=== PATIENT | female | born 1960 | race Two or more races ===

== ENCOUNTER 2016-09-13 07:40 | Emergency (ER) | payer MEDICAID ==
[~2016-09-13] VITALS: Ht 157.5 cm; Wt 65.8 kg
[~2016-09-13 07:40] MED LIST: AMLO5TAB2 PO; PRE5T GT; TRAM50TA2 PO
[2016-09-13 07:56] VITALS: BP 137/89
== END 2016-09-13 08:22 | disposition home or self-care (01) ==
LOC: ER 07:43
DX: M17.0 Bilateral primary osteoarthritis of knee (principal); M79.7 Fibromyalgia; K51.90 Ulcerative colitis, unspecified, without complications; F17.210 Nicotine dependence, cigarettes, uncomplicated; I10 Essential (primary) hypertension; J45.909 Unspecified asthma, uncomplicated

== ENCOUNTER 2017-11-06 07:43 | Emergency (ER) | payer MEDICAID ==
[~2017-11-06] VITALS: Ht 157.5 cm; Wt 65.8 kg
[2017-11-06 08:29] VITALS: BP 131/83
[2017-11-06] MEDS ORDERED: KETOROLAC TROMETH 60MG/2ML VIAL IM ONE (08:45)
== END 2017-11-06 09:27 | disposition home or self-care (01) ==
LOC: ER 07:43
DX: S96.912A Strain of unspecified muscle and tendon at ankle and foot level, left foot, initial encounter (principal); D86.9 Sarcoidosis, unspecified; F17.210 Nicotine dependence, cigarettes, uncomplicated; I10 Essential (primary) hypertension; J45.909 Unspecified asthma, uncomplicated; X58.XXXA Exposure to other specified factors, initial encounter; Y93.89 Activity, other specified; Y92.89 Other specified places as the place of occurrence of the external cause; Y99.8 Other external cause status
CPT/HCPCS: 96372; 99283; J1885

== ENCOUNTER 2018-07-08 07:46 | Emergency (ER) | payer MEDICAID ==
[~2018-07-08] VITALS: Ht 157.5 cm; Wt 70.3 kg
[~2018-07-08 07:46] MED LIST changes: +AMLO5TAB13 PO; -AMLO5TAB2 PO; +NAP500T PO; -PRE5T GT; +PRE5T PO; +RANI300T3 PO
[2018-07-08 07:55] VITALS: BP 124/81
== END 2018-07-08 10:21 | disposition home or self-care (01) ==
LOC: ER 07:46
DX: J02.9 Acute pharyngitis, unspecified (principal); J40 Bronchitis, not specified as acute or chronic; I10 Essential (primary) hypertension; Z98.51 Tubal ligation status
CPT/HCPCS: 71046

== ENCOUNTER 2018-08-01 09:23 | Emergency (ER) | payer MEDICAID ==
[~2018-08-01] VITALS: Ht 157.5 cm; Wt 72.6 kg
[2018-08-01 10:08] VITALS: BP 150/78
[2018-08-01] MEDS ORDERED: traMADol HCL 50 MG TAB PO ONE (10:45)
== END 2018-08-01 10:55 | disposition home or self-care (01) ==
LOC: ER 09:23
DX: S52.571A Other intraarticular fracture of lower end of right radius, initial encounter for closed fracture (principal); M19.90 Unspecified osteoarthritis, unspecified site; J45.909 Unspecified asthma, uncomplicated; I10 Essential (primary) hypertension; Z79.899 Other long term (current) drug therapy; Z98.51 Tubal ligation status; W01.198A Fall on same level from slipping, tripping and stumbling with subsequent striking against other object, initial encounter; Y93.01 Activity, walking, marching and hiking; Y99.8 Other external cause status; Y92.89 Other specified places as the place of occurrence of the external cause
CPT/HCPCS: 29125; 73110

== ENCOUNTER 2019-01-10 07:11 | Emergency (ER) | payer MEDICAID ==
[~2019-01-10] VITALS: Ht 157.5 cm; Wt 72.6 kg
[~2019-01-10 07:11] MED LIST changes: -AMLO5TAB13 PO; +AMLO5TAB15 PO
[2019-01-10 07:29] VITALS: BP 134/93
== END 2019-01-10 08:12 | disposition home or self-care (01) ==
LOC: ER 07:16
DX: L03.115 Cellulitis of right lower limb (principal); M19.90 Unspecified osteoarthritis, unspecified site; J45.909 Unspecified asthma, uncomplicated; I10 Essential (primary) hypertension
CPT/HCPCS: 73590; 73610

== ENCOUNTER → 2019-08-10 | Emergency (ER) | payer MEDICAID ==
[~2019-08-10] VITALS: Ht 157.5 cm; Wt 73.5 kg
[~2019-08-10] MED LIST changes: +ACETAMINOPHEN 500 MG TAB PO ONE; +cloNIDine HCL 0.1 MG TAB PO ONE
[2019-08-10 04:27] LABS: Basophils # (auto) 0.1 10 ^3/uL (0-0.2); Basophils % (auto) 0.9 % (0.0-2.0); Eosinophils # (auto) 0 10 ^3/uL (0-0.8); Eosinophils % (auto) 0.3 % (0.0-7.0); Hematocrit 41.2 % (36.0-46.0); Hemoglobin 14.4 g/dL (12.2-16.2); Lymphocytes # (auto) 0.8 10 ^3/uL (0.4-5.4); Lymphocytes % (auto) 5.6 % (10.0-50.0); Mean Corpuscular Hemoglobin 32.7 pg (28.0-32.0); Mean Corpuscular Hgb Conc. 34.9 g/dL (32.0-36.0); Mean Corpuscular Volume 93.7 fL (80.0-100.0); Monocytes # (auto) 0.5 10 ^3/uL (0-1.3); Monocytes % (auto) 3.1 % (0.0-12.0); Neutrophils # (auto) 12.9 10 ^3/uL (1.6-8.6); Neutrophils % (auto) 90.1 % (37.0-80.0); Platelet Count (auto) 296 10^3/uL (140-450); Red Cell Distribution Width 13.4 % (11.8-14.3); White Blood Cell 14.4 10^3/uL (4.4-10.8)
[2019-08-10 04:46] LABS: INR 0.99 (0.9-1.15); Partial Thromboplastin Time 25.9 sec (23.64-32.05)
[2019-08-10 04:48] LABS: Albumin 3.6 g/dL (3.4-5.0); Anion Gap 7 (5-15); Blood Urea Nitrogen 18 mg/dL (7-18); Calcium 8.8 mg/dL (8.5-10.1); Carbon Dioxide 24 mmol/L (21-32); Chloride 110 mmol/L (98-107); Glucose 143 mg/dL (74-106); Potassium 3.6 mmol/L (3.5-5.1); Sodium 141 mmol/L (136-145)
[2019-08-10 04:53] LABS: Alanine Aminotransferase 21 U/L (13-56); Alkaline Phosphatase 105 U/L (45-117); Aspartate Aminotransferase 15 U/L (15-37); BUN/Creatinine Ratio 28.6; Bilirubin, Total 0.5 mg/dL (0.2-1.0); GFR African American 124 mL/min; GFR Non-African American 103 mL/min
[2019-08-10 06:07] LABS: Urine Bacteria FEW /hpf (None Seen); Urine Blood Negative /uL (Negative); Urine Mucus FEW (None Seen); Urine Specific Gravity 1.005 (1.001-1.035); Urine WBC 1 /hpf (0 - 5)
[2019-08-10 08:27] VITALS: BP 117/80
== END | disposition home or self-care (01) ==
LOC: ER 01:31
DX: I10 Essential (primary) hypertension (principal); R73.9 Hyperglycemia, unspecified; D86.9 Sarcoidosis, unspecified; M19.90 Unspecified osteoarthritis, unspecified site; J45.909 Unspecified asthma, uncomplicated; Z98.51 Tubal ligation status; Z90.89 Acquired absence of other organs
CPT/HCPCS: 36415; 71046; 80053; 81001; 83880; 84484; 85025; 85610; 85730; 93005

== ENCOUNTER 2019-11-07 13:38 | Emergency (ER) | payer MEDICAID ==
[~2019-11-07] VITALS: Ht 157.5 cm; Wt 74.4 kg
[~2019-11-07 13:38] MED LIST changes: -ACETAMINOPHEN 500 MG TAB PO ONE; -cloNIDine HCL 0.1 MG TAB PO ONE
[2019-11-07 13:51] VITALS: BP 153/95
[2019-11-07] MEDS ORDERED: HYDROcodone-ACET 7.5/325MG TAB PO ONE (14:15)
== END 2019-11-07 14:48 | disposition home or self-care (01) ==
LOC: ER 13:38
DX: S52.592A Other fractures of lower end of left radius, initial encounter for closed fracture (principal); I10 Essential (primary) hypertension; Z79.899 Other long term (current) drug therapy; Z88.2 Allergy status to sulfonamides; W01.0XXA Fall on same level from slipping, tripping and stumbling without subsequent striking against object, initial encounter; Y93.89 Activity, other specified; Y92.89 Other specified places as the place of occurrence of the external cause; Y99.8 Other external cause status
CPT/HCPCS: 29125; 73110

== ENCOUNTER 2020-02-20 13:49 | Inpatient (IN) | payer MEDICAID ==
[~2020-02-20] VITALS: Ht 158.8 cm; Wt 75.1 kg
[2020-02-20] MEDS ORDERED: MORPHINE SULFATE 4 MG/ML SYR/VIAL IV ONE (14:15)
[2020-02-20] MEDS ORDERED: ONDANSETRON HCL 4 MG/2 ML VIAL IV ONE (14:15)
[2020-02-20 14:51] LABS: Basophils # (auto) 0.7 10 ^3/uL (0-0.2); Basophils % (auto) 7.4 % (0.0-2.0); Eosinophils # (auto) 0.1 10 ^3/uL (0-0.8); Eosinophils % (auto) 1.2 % (0.0-7.0); Hematocrit 41.6 % (36.0-46.0); Lymphocytes # (auto) 1.9 10 ^3/uL (0.4-5.4); Lymphocytes % (auto) 18.7 % (10.0-50.0); Mean Corpuscular Hemoglobin 31.5 pg (28.0-32.0); Mean Corpuscular Hgb Conc. 33.6 g/dL (32.0-36.0); Mean Corpuscular Volume 93.7 fL (80.0-100.0); Monocytes # (auto) 0.8 10 ^3/uL (0-1.3); Monocytes % (auto) 8.4 % (0.0-12.0); Neutrophils # (auto) 6.4 10 ^3/uL (1.6-8.6); Neutrophils % (auto) 64.3 % (37.0-80.0); Nucleated Red Blood Cells % 0.1 %; Platelet Count (auto) 324 10^3/uL (140-450); Red Blood Cells 4.44 10^6/uL (4.0-5.20); Red Cell Distribution Width 13.4 % (11.8-14.3)
[2020-02-20 15:11] LABS: Calcium 8.5 mg/dL (8.5-10.1); Chloride 112 mmol/L (98-107); Sodium 144 mmol/L (136-145)
[2020-02-20 15:15] LABS: Alanine Aminotransferase 20 U/L (13-56); Albumin 3.6 g/dL (3.4-5.0); Anion Gap 7 (5-15); Aspartate Aminotransferase 11 U/L (15-37); BUN/Creatinine Ratio 20.8; Blood Urea Nitrogen 11 mg/dL (7-18); Carbon Dioxide 25 mmol/L (21-32); GFR African American 152 mL/min; GFR Non-African American 125 mL/min; Glucose 107 mg/dL (74-106)
[2020-02-20 15:19] LABS: Alkaline Phosphatase 125 U/L (45-117); Bilirubin, Total 0.5 mg/dL (0.2-1.0); Total Protein 6.6 g/dL (6.4-8.2)
[2020-02-20 15:22] LABS: Potassium 2.7 mmol/L (3.5-5.1)
[2020-02-20] MEDS ORDERED: POTASSIUM CHL 20MEQ/100ML 100 ML IV ONE (15:30)
[2020-02-20] MEDS ORDERED: LORazepam 0.5 MG TAB PO PRN (16:00)
[2020-02-20] MEDS ORDERED: MORPHINE SULF INJ 2 MG/ML SYRINGE 1ML IV PRN ×2 (16:00)
[2020-02-20] MEDS ORDERED: LABETALOL HCL 5 MG/ML 4ML SYRINGE IV PRN (16:00)
[2020-02-20] MEDS ORDERED: NITROGLYCERIN 0.4 MG SL TAB SL PRN (16:00)
[2020-02-20] MEDS: SODIUM CHLORIDE 0.9% 1,000 ML IV SCH (16:25)
[2020-02-20 16:57] LABS: Urine Bacteria NONE SEEN /hpf (None Seen); Urine Blood Negative /uL (Negative); Urine Specific Gravity 1.003 (1.001-1.035); Urine WBC 6 /hpf (0 - 5)
[2020-02-20] MEDS ORDERED: POTASSIUM CHL 20 Meq TABLET PO ONE ×2 (17:15→22:45)
--- NOTE | 2020-02-20 17:30 | NUR ---
Telemetry admit from ER MANOLO MORAES admitted to Telemetry unit after SBAR received. Patient oriented to TIN DEVLIN RN primary RN, unit, room, bed, and unit policies regarding patient care. Patient now on continuous telemetry monitoring, tele box #25 and telemetry reading on arrival to unit is sinus rhythm. [facility] and encouraged to call if they need something. All questions and concerns addressed, patient verbalized understanding.
[2020-02-20 17:32] VITALS: BP 135/88
[2020-02-20 17:49] VITALS: BP 135/88
[2020-02-20] MEDS ORDERED: FAMOTIDINE 20 MG TAB PO SCH (18:00)
--- NOTE | 2020-02-20 18:52 | NUR ---
Closing Shift Note Patient resting in bed. No distress noted. Will give report and endorse care to the stitch bonding machine tender helper RN.
[2020-02-20 19:14] LABS: Magnesium 2.2 mg/dL (1.6-2.6); Potassium 3.4 mmol/L (3.5-5.1)
--- NOTE | 2020-02-20 20:00 | NUR ---
Opening Shift Note Assumed care of patient, awake and alert. No S/S of distress/SOB or pain. Instructed on POC and to call for assist PRN, will continue to monitor for changes Q1hr and PRN.Advised no food or drink after midnight for stress test and echo. tomorrow.
--- NOTE | 2020-02-20 20:54 | NUR ---
Patient said they tested her for covid-19, 2 months ago before surgery in [facility] with negative result.
[2020-02-20 21:33] VITALS: BP 105/70
[2020-02-20] MEDS: ACETAMINOPHEN 325 MG TAB PO PRN (21:37)
--- NOTE | 2020-02-20 22:42 | NUR ---
Informed Sammy Carranza, for patients potassium result of 3.4, with order of 20meq. potassium p.o x one.
[2020-02-21 04:54] VITALS: BP 111/75
--- NOTE | 2020-02-21 05:00 | NUR ---
IV insertion IV access obtained, via clean sterile technique by inserting 22 gauge catheter at right hand after attempt. IV secured properly. No trauma to site. Patient tolerated well.
[2020-02-21] MEDS: SODIUM CHLORIDE 0.9% 1,000 ML IV SCH ×2 (05:26→18:32)
[2020-02-21 06:30] LABS: Basophils # (auto) 0.1 10 ^3/uL (0-0.2); Basophils % (auto) 1.3 % (0.0-2.0); Eosinophils # (auto) 0.1 10 ^3/uL (0-0.8); Eosinophils % (auto) 2.4 % (0.0-7.0); Hematocrit 40.5 % (36.0-46.0); Hemoglobin 13.7 g/dL (12.2-16.2); Lymphocytes % (auto) 35.6 % (10.0-50.0); Mean Corpuscular Volume 94.1 fL (80.0-100.0); Monocytes # (auto) 0.6 10 ^3/uL (0-1.3); Monocytes % (auto) 10.1 % (0.0-12.0); Neutrophils # (auto) 2.9 10 ^3/uL (1.6-8.6); Neutrophils % (auto) 50.6 % (37.0-80.0); Nucleated Red Blood Cells % 0.1 %; Platelet Count (auto) 312 10^3/uL (140-450); Red Cell Distribution Width 13.6 % (11.8-14.3); White Blood Cell 5.7 10^3/uL (4.4-10.8)
[2020-02-21 06:44] LABS: Magnesium 2.3 mg/dL (1.6-2.6); Potassium 3.8 mmol/L (3.5-5.1)
[2020-02-21 06:47] LABS: INR 1.03 (0.9-1.15); Partial Thromboplastin Time 25.6 sec (23.0-31.2)
[2020-02-21 06:51] LABS: Albumin 3.3 g/dL (3.4-5.0); BUN/Creatinine Ratio 15.2; Bilirubin, Total 0.8 mg/dL (0.2-1.0); Calcium 8.2 mg/dL (8.5-10.1); Phosphorus 3.2 mg/dL (2.5-4.90); Total Protein 6.1 g/dL (6.4-8.2)
--- NOTE | 2020-02-21 07:30 | NUR ---
Received report from Antonella Montana. Pt. is sleeping comfortably in bed. IV fluids are running, no distress noted.
--- NOTE | 2020-02-21 07:32 | NUR ---
Report given to Chris Sanchez, patient is resting no distress.
[2020-02-21] MEDS ORDERED: ADENOSINE 62 MG in GIVE UN-DILUTED 0 ML IV STA (08:23)
[2020-02-21 09:00] VITALS: BP 123/81
--- NOTE | 2020-02-21 09:51 | NUR ---
Pt. off unit. Addendum: 02/21/20 at 0952 by PAWAN FLORES RN RN Amended: Links added.
[2020-02-21] MEDS ORDERED: amLODIPine BESYLATE 5 MG TAB PO SCH (10:00)
[2020-02-21] MEDS: DOCUSATE CALCIUM 240 MG CAP PO SCH (10:00)
[2020-02-21] MEDS: FAMOTIDINE 20 MG TAB PO SCH (11:32)
[2020-02-21] MEDS: predniSONE 5 MG TAB PO SCH (11:32)
[2020-02-21] MEDS: ENOXAPARIN SOD 40 MG/0.4 ML SYRINGE SC SCH (11:32)
[2020-02-21 13:00] VITALS: BP 133/94
[2020-02-21] MEDS: METOPROLOL TARTRATE 25 MG TAB PO SCH ×2 (13:09→21:00)
[2020-02-21 17:00] VITALS: BP 125/78
--- NOTE | 2020-02-21 19:21 | NUR ---
Pt. is resting comfortably in bed. Her blood pressure continues to be stable and she states feeling better. Report given to Antonella RUIZ.
--- NOTE | 2020-02-21 19:57 | NUR ---
Opening Shift Note Assumed care of patient, awake and alert. No S/S of distress/SOB or pain. Instructed on POC and to call for assist PRN, will continue to monitor for changes Q1hr and PRN.Patient said she will go home tomorrow.
[2020-02-21 21:12] VITALS: BP 119/75
[2020-02-22 04:39] VITALS: BP 109/71
[2020-02-22 06:07] LABS: Basophils # (auto) 0.1 10 ^3/uL (0-0.2); Basophils % (auto) 1.4 % (0.0-2.0); Eosinophils # (auto) 0.1 10 ^3/uL (0-0.8); Eosinophils % (auto) 2.2 % (0.0-7.0); Hematocrit 43.7 % (36.0-46.0); Hemoglobin 14.5 g/dL (12.2-16.2); Lymphocytes # (auto) 1.7 10 ^3/uL (0.4-5.4); Lymphocytes % (auto) 25.2 % (10.0-50.0); Mean Corpuscular Hemoglobin 31.8 pg (28.0-32.0); Mean Corpuscular Hgb Conc. 33.1 g/dL (32.0-36.0); Monocytes # (auto) 0.5 10 ^3/uL (0-1.3); Monocytes % (auto) 7.6 % (0.0-12.0); Neutrophils # (auto) 4.3 10 ^3/uL (1.6-8.6); Neutrophils % (auto) 63.6 % (37.0-80.0); Platelet Count (auto) 315 10^3/uL (140-450); Red Blood Cells 4.55 10^6/uL (4.0-5.20); Red Cell Distribution Width 13.8 % (11.8-14.3); White Blood Cell 6.8 10^3/uL (4.4-10.8)
[2020-02-22 06:30] LABS: Anion Gap 5 (5-15); Blood Urea Nitrogen 14 mg/dL (7-18); Calcium 8.9 mg/dL (8.5-10.1); Carbon Dioxide 27 mmol/L (21-32); Chloride 109 mmol/L (98-107); Glucose 89 mg/dL (74-106); Potassium 3.4 mmol/L (3.5-5.1); Sodium 141 mmol/L (136-145)
[2020-02-22 06:36] LABS: GFR African American 162 mL/min; GFR Non-African American 134 mL/min
--- NOTE | 2020-02-22 07:10 | NUR ---
Report given to Chris Hurd, patient is resting no distress.
--- NOTE | 2020-02-22 07:30 | NUR ---
Opening Shift Note Assuming care of patient at this time. Patient is awake and alert. Patient is complaining of pain to the legs secondary to fibromyalgia. Patient shows no signs or symptoms of distress or shortness of breath. Bed is locked and lowered with side rails up x2. Instructed patient on the plan of care for today and to call for assistance as needed. Call light within reach. Will continue to round hourly and as needed.
[2020-02-22 09:00] VITALS: BP 126/88
[2020-02-22] MEDS: SODIUM CHLORIDE 0.9% 1,000 ML IV SCH (09:08)
[2020-02-22] MEDS: DOCUSATE CALCIUM 240 MG CAP PO SCH (09:14)
[2020-02-22] MEDS: predniSONE 5 MG TAB PO SCH (09:14)
[2020-02-22] MEDS: ACETAMINOPHEN 325 MG TAB PO PRN (09:14)
[2020-02-22] MEDS: FAMOTIDINE 20 MG TAB PO SCH (09:14)
[2020-02-22] MEDS: ENOXAPARIN SOD 40 MG/0.4 ML SYRINGE SC SCH (09:15)
[2020-02-22] MEDS: METOPROLOL TARTRATE 25 MG TAB PO SCH (09:18)
[2020-02-22] MEDS ORDERED: METOPROLOL SUCCINATE XL 50 MG TAB PO SCH (10:00)
[2020-02-22] MEDS ORDERED: METOPROLOL TARTRATE 25 MG TAB PO SCH (10:00)
[2020-02-22] MEDS ORDERED: POTASSIUM EFFERVESENT TAB 25 MEQ PO ONE (11:45)
[2020-02-22 12:51] VITALS: BP 128/92
[2020-02-22 13:00] VITALS: BP 128/92
--- NOTE | 2020-02-22 14:28 | NUR ---
Discharge Discharge instructions given as ordered. Encourage to follow up with PMD as instructed. All questions and concerns addressed. Patient verbalized understanding. Medication reconciliation form completed and copy given to patient. IV removed with catheter intact, pressure dressing applied. Telemetry unit returned to ICU. Patient taken to vehicle via wheelchair with all personal belongings, accompanied by staff. No distress noted at time of departure.
== END 2020-02-22 14:30 | disposition home or self-care (01) | DRG 201 ==
LOC: EDBD 13:49 → ER 13:49 → TELE 13:50 → TELE-CENTR 17:50
PROVIDERS: ATTEND Internal Medicine
DX: I47.1 Supraventricular tachycardia (principal); E87.6 Hypokalemia; K21.9 Gastro-esophageal reflux disease without esophagitis; D86.9 Sarcoidosis, unspecified; I24.9 Acute ischemic heart disease, unspecified; M19.90 Unspecified osteoarthritis, unspecified site; I05.8 Other rheumatic mitral valve diseases; I10 Essential (primary) hypertension; J45.909 Unspecified asthma, uncomplicated; M35.00 Sjogren syndrome, unspecified; M79.7 Fibromyalgia; E66.9 Obesity, unspecified; M81.0 Age-related osteoporosis without current pathological fracture; Z82.5 Family history of asthma and other chronic lower respiratory diseases; Z88.2 Allergy status to sulfonamides; Z68.29 Body mass index [BMI] 29.0-29.9, adult
CPT/HCPCS: 36415; 71045; 78452; 80048; 80053; 80061; 81001; 83735; 83880; 84100; 84132; 84436; 84443; 84484; 85025; 85379; 85610; 85730; 93005; 93017; 93306; G0378; J0153; J2405; J3480

== ENCOUNTER 2020-12-22 13:08 | Emergency (ER) | payer MEDICAID ==
[~2020-12-22] VITALS: Ht 157.5 cm; Wt 68.0 kg
[~2020-12-22 13:08] MED LIST changes: +AMLO-489 PO; -AMLO5TAB15 PO
[2020-12-22 15:23] VITALS: BP 143/79
== END 2020-12-22 16:10 | disposition home or self-care (01) ==
LOC: ER 13:08
DX: S50.861A Insect bite (nonvenomous) of right forearm, initial encounter (principal); I10 Essential (primary) hypertension; J45.909 Unspecified asthma, uncomplicated; Z90.89 Acquired absence of other organs; Z79.899 Other long term (current) drug therapy; Z88.2 Allergy status to sulfonamides; W57.XXXA Bitten or stung by nonvenomous insect and other nonvenomous arthropods, initial encounter; Y93.89 Activity, other specified; Y92.89 Other specified places as the place of occurrence of the external cause; Y99.8 Other external cause status

== ENCOUNTER 2021-01-15 20:41 | Emergency (ER) | payer MEDICAID ==
[~2021-01-15] VITALS: Ht 157.5 cm; Wt 68.0 kg
[2021-01-15 22:15] VITALS: BP 116/85
[2021-01-15 22:52] LABS: Basophils # (auto) 0 10 ^3/uL (0-0.2); Basophils % (auto) 0.4 % (0.0-2.0); Eosinophils # (auto) 0 10 ^3/uL (0-0.8); Eosinophils % (auto) 0.4 % (0.0-7.0); Hematocrit 43.2 % (36.0-46.0); Hemoglobin 15.2 g/dL (12.2-16.2); Lymphocytes # (auto) 0.7 10 ^3/uL (0.4-5.4); Lymphocytes % (auto) 6.8 % (10.0-50.0); Mean Corpuscular Hemoglobin 32.4 pg (28.0-32.0); Mean Corpuscular Hgb Conc. 35.3 g/dL (32.0-36.0); Mean Corpuscular Volume 91.8 fL (80.0-100.0); Monocytes # (auto) 0.6 10 ^3/uL (0-1.3); Monocytes % (auto) 5.2 % (0.0-12.0); Neutrophils # (auto) 9.4 10 ^3/uL (1.6-8.6); Neutrophils % (auto) 87.2 % (37.0-80.0); Red Cell Distribution Width 13.5 % (11.8-14.3); White Blood Cell 10.8 10^3/uL (4.4-10.8)
[2021-01-15 23:10] LABS: Albumin 4.1 g/dL (3.4-5.0); Anion Gap 8 (5-15); Blood Urea Nitrogen 14 mg/dL (7-18); Calcium 8.6 mg/dL (8.5-10.1); Carbon Dioxide 23 mmol/L (21-32); Chloride 109 mmol/L (98-107); Glucose 129 mg/dL (74-106); Magnesium 2.2 mg/dL (1.6-2.6); Potassium 3.4 mmol/L (3.5-5.1); Sodium 140 mmol/L (136-145)
[2021-01-15 23:12] LABS: Alanine Aminotransferase 18 U/L (13-56); Aspartate Aminotransferase 13 U/L (15-37); GFR African American 162 mL/min; GFR Non-African American 134 mL/min
[2021-01-15 23:17] LABS: Alkaline Phosphatase 75 U/L (45-117); Bilirubin, Total 0.4 mg/dL (0.2-1.0); Total Protein 7.7 g/dL (6.4-8.2)
== END 2021-01-16 02:56 | disposition left against medical advice (07) ==
LOC: ER 20:41
DX: R00.2 Palpitations (principal); I10 Essential (primary) hypertension; R20.0 Anesthesia of skin; Z53.21 Procedure and treatment not carried out due to patient leaving prior to being seen by health care provider
CPT/HCPCS: 36415; 71046; 80053; 83735; 83880; 84484; 85025; 93005

== ENCOUNTER 2022-09-07 09:37 | Inpatient (IN) | payer MEDICAID ==
[~2022-09-07] VITALS: Ht 157.5 cm; Wt 144.3 kg
[2022-09-07] MEDS ORDERED: dilTIAZem 25 MG/5 ML VIAL IV ONE (10:00)
[2022-09-07] MEDS ORDERED: ASPirin 325 MG TAB PO ONE (10:00)
[2022-09-07] MEDS ORDERED: SODIUM CHLORIDE 0.9% 1,000 ML IV ONE (10:00)
[2022-09-07 10:35] LABS: Basophils # (auto) 0.1 10 ^3/uL (0-0.2); Basophils % (auto) 0.5 % (0.0-2.0); Eosinophils # (auto) 0.1 10 ^3/uL (0-0.8); Eosinophils % (auto) 0.9 % (0.0-7.0); Hematocrit 41.2 % (36.0-46.0); Hemoglobin 14.1 g/dL (12.2-16.2); Lymphocytes # (auto) 1.5 10 ^3/uL (0.4-5.4); Lymphocytes % (auto) 13.7 % (10.0-50.0); Mean Corpuscular Hgb Conc. 34.1 g/dL (32.0-36.0); Mean Corpuscular Volume 93.8 fL (80.0-100.0); Monocytes # (auto) 0.6 10 ^3/uL (0-1.3); Monocytes % (auto) 5.6 % (0.0-12.0); Neutrophils # (auto) 8.9 10 ^3/uL (1.6-8.6); Neutrophils % (auto) 79.3 % (37.0-80.0); Red Blood Cells 4.39 10^6/uL (4.0-5.20); Red Cell Distribution Width 13.8 % (11.8-14.3); White Blood Cell 11.3 10^3/uL (4.4-10.8)
[2022-09-07 10:50] LABS: Alanine Aminotransferase 32 U/L (13-56); Albumin 3.4 g/dL (3.4-5.0); Anion Gap 9 (5-15); Aspartate Aminotransferase 33 U/L (15-37); BUN/Creatinine Ratio 21.5 (10.0-20.0); Blood Urea Nitrogen 14 mg/dL (7-18); Calcium 8.4 mg/dL (8.5-10.1); Carbon Dioxide 22 mmol/L (21-32); Chloride 115 mmol/L (98-107); GFR African American 119 mL/min; GFR Non-African American 98 mL/min; Glucose 109 mg/dL (74-106); Magnesium 1.8 mg/dL (1.6-2.6); Sodium 146 mmol/L (136-145)
[2022-09-07 10:52] LABS: Alkaline Phosphatase 66 U/L (45-117); Bilirubin, Total 0.5 mg/dL (0.2-1.0); Total Protein 6.5 g/dL (6.4-8.2)
[2022-09-07 11:17] LABS: INR 0.93 (0.9-1.15); Partial Thromboplastin Time 24.8 sec (24.6-33.4)
[2022-09-07 11:30] LABS: Potassium 2.9 mmol/L (3.5-5.1)
[2022-09-07] MEDS ORDERED: POTASSIUM CHL 20 Meq TABLET PO ONE (11:45)
[2022-09-07 11:48] LABS: Urine Bacteria NONE SEEN /hpf (None Seen); Urine Blood Negative /uL (Negative); Urine Specific Gravity 1.006 (1.001-1.035); Urine WBC <1 /hpf (0 - 5)
[2022-09-07 11:53] LABS: Alcohol, Urine < 3.0 mg/dL (0-10); Amphetamine Screen, Urine NEGATIVE (NEGATIVE); Barbiturate Scree,Urine NEGATIVE (NEGATIVE); Benzodiazephine Screen, Urine NEGATIVE (NEGATIVE); Cannabinoid Screen, Urine NEGATIVE (NEGATIVE); Cocaine Screen, Urine NEGATIVE (NEGATIVE); Opiate Scree,Urine NEGATIVE (NEGATIVE); Phencyclidine Screen, Urine NEGATIVE (NEGATIVE)
[2022-09-07] MEDS: HYDROcodone-ACET 5/325MG TAB PO PRN (16:54)
[2022-09-07 18:35] LABS: Magnesium 2.2 mg/dL (1.6-2.6); Phosphorus 1.7 mg/dL (2.5-4.90)
[2022-09-07] MEDS: predniSONE 5 MG TAB PO SCH (21:54)
[2022-09-07] MEDS: ATORVASTATIN 20 MG TAB PO SCH (21:54)
[2022-09-08 06:21] LABS: Basophils # (auto) 0 10 ^3/uL (0-0.2); Basophils % (auto) 0.6 % (0.0-2.0); Eosinophils # (auto) 0.1 10 ^3/uL (0-0.8); Eosinophils % (auto) 1.6 % (0.0-7.0); Hematocrit 37.5 % (36.0-46.0); Hemoglobin 13.2 g/dL (12.2-16.2); Lymphocytes # (auto) 1.1 10 ^3/uL (0.4-5.4); Lymphocytes % (auto) 12.9 % (10.0-50.0); Mean Corpuscular Hemoglobin 33.2 pg (28.0-32.0); Mean Corpuscular Hgb Conc. 35.2 g/dL (32.0-36.0); Mean Corpuscular Volume 94.4 fL (80.0-100.0); Monocytes # (auto) 0.3 10 ^3/uL (0-1.3); Monocytes % (auto) 3.4 % (0.0-12.0); Neutrophils # (auto) 7.1 10 ^3/uL (1.6-8.6); Neutrophils % (auto) 81.5 % (37.0-80.0); Red Blood Cells 3.97 10^6/uL (4.0-5.20); Red Cell Distribution Width 14.1 % (11.8-14.3); White Blood Cell 8.7 10^3/uL (4.4-10.8)
[2022-09-08 06:34] LABS: Albumin 3.1 g/dL (3.4-5.0); Calcium 8.4 mg/dL (8.5-10.1); Potassium 3.6 mmol/L (3.5-5.1)
[2022-09-08 06:39] LABS: BUN/Creatinine Ratio 26.9 (10.0-20.0); Bilirubin, Total 0.6 mg/dL (0.2-1.0); Total Protein 5.8 g/dL (6.4-8.2)
[2022-09-08] MEDS: HYDROcodone-ACET 5/325MG TAB PO PRN ×2 (09:28→20:00)
[2022-09-08 09:45] VITALS: BP 144/79
[2022-09-08] MEDS: ENOXAPARIN SOD 40 MG/0.4 ML SYRINGE SC SCH (10:54)
[2022-09-08] MEDS: METOPROLOL TARTRATE 25 MG TAB PO SCH (10:56)
[2022-09-08] MEDS: ASPirin 81 mg TAB PO SCH (10:56)
[2022-09-08] MEDS: LISINOPRIL 10 MG TAB PO SCH (10:56)
[2022-09-08] MEDS: FUROSEMIDE 20 MG/2 ML VIAL IV SCH (10:57)
[2022-09-08] MEDS: predniSONE 5 MG TAB PO SCH (10:59)
[2022-09-08 13:00] VITALS: BP 127/76
[2022-09-08 16:54] LABS: Hepatitis C Antibody Negative (Negative)
[2022-09-08 17:00] VITALS: BP 121/80
[2022-09-08] MEDS: ATORVASTATIN 20 MG TAB PO SCH (21:56)
[2022-09-08 22:00] VITALS: BP 108/68
[2022-09-09] VITALS (16 sets, daily range): BP systolic 107–134; BP diastolic 56–86
[2022-09-09] MEDS: METOPROLOL TARTRATE 25 MG TAB PO SCH (09:31)
[2022-09-09] MEDS: ASPirin 81 mg TAB PO SCH (09:31)
[2022-09-09] MEDS: LISINOPRIL 10 MG TAB PO SCH (09:32)
[2022-09-09] MEDS: predniSONE 5 MG TAB PO SCH (09:32)
[2022-09-09] MEDS: FUROSEMIDE 20 MG/2 ML VIAL IV SCH (09:33)
[2022-09-09] MEDS: ENOXAPARIN SOD 40 MG/0.4 ML SYRINGE SC SCH (09:33)
[2022-09-09 11:50] LABS: INR 0.97 (0.9-1.15); Partial Thromboplastin Time 27.9 sec (24.6-33.4)
[2022-09-09] MEDS ORDERED: VERAPAMIL 2.5MG/ML INJ 2ML VIAL IV ONE (14:33)
[2022-09-09] MEDS ORDERED: MIDAZOLAM HCL 2MG/2ML 2ml VIAL (1mg/ml) ONE (14:34)
[2022-09-09] MEDS ORDERED: fentaNYL CITRATE 100 MCG/2 ML VL ONE (14:34)
[2022-09-09] MEDS ORDERED: LIDOCAINE 2%HCL (LOCAL ANESTH.) INJ 20ML MDV ONE (14:44)
[2022-09-09] MEDS ORDERED: HEPARIN SODIUM (PORCINE) 5000 UNITS/ML 1ML VIAL ONE (15:15)
[2022-09-09] MEDS: HYDROcodone-ACET 5/325MG TAB PO PRN (18:55)
[2022-09-09] MEDS: ATORVASTATIN 20 MG TAB PO SCH (21:42)
[2022-09-10 05:00] VITALS: BP 110/66
[2022-09-10] MEDS: FUROSEMIDE 20 MG/2 ML VIAL IV SCH (10:27)
[2022-09-10] MEDS: ASPirin 81 mg TAB PO SCH (10:27)
[2022-09-10] MEDS: LISINOPRIL 10 MG TAB PO SCH (10:28)
[2022-09-10] MEDS: METOPROLOL TARTRATE 25 MG TAB PO SCH (10:28)
[2022-09-10] MEDS: predniSONE 5 MG TAB PO SCH (10:28)
[2022-09-10] MEDS: HYDROcodone-ACET 5/325MG TAB PO PRN (10:29)
[2022-09-10] MEDS ORDERED: ASPI1TAB20 PO (11:21)
[2022-09-10 11:30] VITALS: BP 130/76
[2022-09-10] MEDS: ENOXAPARIN SOD 40 MG/0.4 ML SYRINGE SC SCH (11:36)
[2022-09-10 13:08] VITALS: BP 130/76
== END 2022-09-10 13:54 | disposition home or self-care (01) | DRG 190 ==
LOC: EDBD 09:37 → EDUNIT# 09:37 → ER 09:37 → TELE 14:42 → TELE-EAST 09-08 09:50
PROVIDERS: ADMIT Nurse Practitioner Family; ATTEND Internal Medicine Pulmonary Disease
PROC: 4A023N7 Measurement of Cardiac Sampling and Pressure, Left Heart, Percutaneous Approach (ICD-10-PCS; principal; 2022-09-09)
PROC: B211YZZ Fluoroscopy of Multiple Coronary Arteries using Other Contrast (ICD-10-PCS; 2022-09-09)
PROC: B215YZZ Fluoroscopy of Left Heart using Other Contrast (ICD-10-PCS; 2022-09-09)
DX: I21.4 Non-ST elevation (NSTEMI) myocardial infarction (principal); I50.41 Acute combined systolic (congestive) and diastolic (congestive) heart failure; E87.0 Hyperosmolality and hypernatremia; D72.829 Elevated white blood cell count, unspecified; I47.1 Supraventricular tachycardia; I11.0 Hypertensive heart disease with heart failure; E87.6 Hypokalemia; J45.909 Unspecified asthma, uncomplicated; Z20.822 Contact with and (suspected) exposure to COVID-19; E78.5 Hyperlipidemia, unspecified; I48.91 Unspecified atrial fibrillation; M19.90 Unspecified osteoarthritis, unspecified site; Z88.2 Allergy status to sulfonamides; I24.9 Acute ischemic heart disease, unspecified
CPT/HCPCS: 36415; 71045; 80053; 80307; 81001; 82962; 83735; 83880; 84100; 84132; 84484; 85025; 85379; 85610; 85730; 86803; 87340; 87426; 93005; 93306; 93458; 96361; 96374; G0378; J2250

== ENCOUNTER 2023-06-22 20:00 | Inpatient (IN) | payer MEDICAID ==
[~2023-06-22] VITALS: Ht 157.5 cm; Wt 66.4 kg
[~2023-06-22 20:00] MED LIST changes: -AMLO-489 PO; +AMLO1TAB22 PO; +ASPI1TAB20 PO
[2023-06-22 21:17] LABS: Basophils # (auto) 0.1 10 ^3/uL (0-0.2); Eosinophils # (auto) 0.1 10 ^3/uL (0-0.8); Eosinophils % (auto) 1.4 % (0.0-7.0); Hematocrit 41.8 % (36.0-46.0); Hemoglobin 14.5 g/dL (12.2-16.2); Lymphocytes # (auto) 2.6 10 ^3/uL (0.4-5.4); Lymphocytes % (auto) 25.8 % (10.0-50.0); Mean Corpuscular Hemoglobin 32.8 pg (28.0-32.0); Mean Corpuscular Hgb Conc. 34.7 g/dL (32.0-36.0); Mean Corpuscular Volume 94.5 fL (80.0-100.0); Monocytes # (auto) 0.7 10 ^3/uL (0-1.3); Monocytes % (auto) 7.1 % (0.0-12.0); Neutrophils # (auto) 6.5 10 ^3/uL (1.6-8.6); Neutrophils % (auto) 64.7 % (37.0-80.0); Nucleated Red Blood Cells % 0.1 %; Red Blood Cells 4.42 10^6/uL (4.0-5.20); Red Cell Distribution Width 13.7 % (11.8-14.3)
[2023-06-22] MEDS ORDERED: LORazepam 0.5 MG TAB PO ONE (21:30)
[2023-06-22] MEDS ORDERED: NITROGLYCERIN 0.2MG/HR TOPICAL PATCH TD ONE (21:30)
[2023-06-22] MEDS ORDERED: ASPirin 81 mg TAB PO ONE (21:30)
[2023-06-22 21:41] LABS: Alanine Aminotransferase 24 U/L (7-40); Albumin 4.5 g/dL (3.2-4.8); Alkaline Phosphatase 61 U/L (46-116); Anion Gap 12 (5-15); Aspartate Aminotransferase 18 U/L (13-40); BUN/Creatinine Ratio 13.1 (10.0-20.0); Blood Urea Nitrogen 8 mg/dL (9-23); Calcium 9.6 mg/dL (8.7-10.4); Carbon Dioxide 25 mmol/L (20-30); Chloride 106 mmol/L (98-107); Glucose 105 mg/dL (74-106); Potassium 2.7 mmol/L (3.5-5.1); Sodium 143 mmol/L (136-145)
[2023-06-22 21:42] LABS: Bilirubin, Total 0.8 mg/dL (0.2-1.0); Total Protein 7.2 g/dL (5.7-8.2)
[2023-06-22] MEDS ORDERED: PANTOPRAZOLE 40 MG TAB PO ONE (21:45)
[2023-06-22 22:41] LABS: Partial Thromboplastin Time 25.5 SEC (24.5-34.5); Prothrombin Time 10.5 sec (9.3-11.8)
[2023-06-23] MEDS ORDERED: ENALAPRILAT 1.25 MG/ML-1ML VIAL IV ONE (01:15)
[2023-06-23] MEDS ORDERED: POTASSIUM CHLORIDE 40 MEQ, LIDOCAINE 1% (LOCAL ANESTH.) 4 ML in SODIUM CHL 0.9% 250 ML IV ONE (01:15)
[2023-06-23] MEDS ORDERED: amLODIPine BESYLATE 5 MG TAB PO ONE (01:15)
[2023-06-23] MEDS ORDERED: POTASSIUM CHL 20 Meq TABLET PO ONE (01:15)
[2023-06-23] MEDS ORDERED: MORPHINE SULFATE INJ 2 MG/ml SYRG IV PRN (01:30)
[2023-06-23] MEDS ORDERED: HYDROmorphone HCL 2 MG/ML VL/or syr IV PRN (01:30)
[2023-06-23] MEDS ORDERED: hydrALAZINE HCL 20 MG/ML VL IV PRN (01:30)
[2023-06-23] MEDS ORDERED: NITROGLYCERIN 0.4 MG SL TAB SL PRN (01:30)
[2023-06-23] MEDS ORDERED: METOCLOPRAMIDE HCL 5MG/ml INJ 2ml VIAL IV PRN (01:30)
[2023-06-23] MEDS ORDERED: IOHEXOL 350 MG/ML 100ML IJ ONE (02:53)
[2023-06-23 04:59] VITALS: PULSE 88; RESP 15; O2SAT 95
[2023-06-23] MEDS: HYDROcodone-ACET 5/325MG TAB PO PRN (05:20)
[2023-06-23] MEDS: POTASSIUM CHL 20MEQ/100ML 100 ML IV SCH ×2 (05:20→08:27)
[2023-06-23] MEDS: SODIUM CHLOR 0.9% PF (SALINE LOCK) 10ML VIAL/SYR IV SCH ×3 (06:04→21:48)
[2023-06-23 07:30] VITALS: PULSE 107; RESP 17; O2SAT 97
[2023-06-23 09:40] LABS: Urine Epithelial Cast None Seen /hpf (<5)
[2023-06-23 09:57] LABS: Urine Bacteria NONE SEEN /hpf (None Seen); Urine Blood Negative /uL (Negative); Urine Clarity Clear (Clear); Urine Color Colorless (Yellow); Urine Protein, UAD Negative (Negative); Urine Specific Gravity 1.025 (1.001-1.035); Urine Urobilinogen Normal (Negative); Urine WBC 2 /hpf (0 - 5); Urine pH 6.5 (5.0-8.0)
[2023-06-23 10:11] LABS: Amphetamine Screen, Urine Neg (NEGATIVE); Barbiturate Scree,Urine Neg (NEGATIVE); Benzodiazephine Screen, Urine Neg (NEGATIVE); Cocaine Screen, Urine Neg (NEGATIVE); Opiate Scree,Urine Neg (NEGATIVE)
[2023-06-23 10:12] LABS: Cannabinoid Screen, Urine Neg (NEGATIVE); Phencyclidine Screen, Urine Neg (NEGATIVE)
[2023-06-23] MEDS: predniSONE 5 MG TAB PO SCH (10:45)
[2023-06-23] MEDS: amLODIPine BESYLATE 5 MG TAB PO SCH (10:46)
[2023-06-23] MEDS: dilTIAZem 120MG ER CAP PO SCH (10:46)
[2023-06-23] MEDS: ASPirin-EC 81 mg tab PO SCH (10:46)
[2023-06-23] MEDS: ENOXAPARIN SOD 40 MG/0.4 ML SYRINGE SC SCH (10:46)
[2023-06-23] MEDS ORDERED: ONDANSETRON HCL 4 MG/2 ML VIAL IV ONE (11:45)
[2023-06-23] MEDS: ONDANSETRON HCL 4 MG/2 ML VIAL IV PRN ×2 (15:58→21:52)
[2023-06-23 16:05] VITALS: PULSE 98; RESP 18; O2SAT 94
[2023-06-23 16:30] VITALS: BP 125/75; PULSE 96; RESP 16; TEMP 98.4; O2SAT 90
[2023-06-23 17:43] LABS: Lipase 41 U/L (12-53)
[2023-06-23 17:45] LABS: Amylase 67 U/L (30-118)
[2023-06-23] MEDS: FAMOTIDINE 20 MG TAB PO SCH (19:20)
[2023-06-23] MEDS: SOD CHL 0.9%/ KCL 40MEQ 1,000 ML IV SCH (19:24)
[2023-06-23 20:00] VITALS: BP 111/70; PULSE 100; RESP 19; TEMP 98.2; O2SAT 97
[2023-06-23] MEDS: LISINOPRIL 20 MG TAB PO SCH (21:48)
[2023-06-24] MEDS: SOD CHL 0.9%/ KCL 40MEQ 1,000 ML IV SCH ×4 (01:38→13:00)
[2023-06-24] MEDS: HYDROcodone-ACET 5/325MG TAB PO PRN (01:51)
[2023-06-24] MEDS: SODIUM CHLOR 0.9% PF (SALINE LOCK) 10ML VIAL/SYR IV SCH ×3 (05:04→21:09)
[2023-06-24 06:28] LABS: Basophils # (auto) 0.1 10 ^3/uL (0-0.2); Basophils % (auto) 0.4 % (0.0-2.0); Eosinophils # (auto) 0 10 ^3/uL (0-0.8); Eosinophils % (auto) 0.4 % (0.0-7.0); Hematocrit 42.2 % (36.0-46.0); Hemoglobin 14.4 g/dL (12.2-16.2); Lymphocytes # (auto) 1.4 10 ^3/uL (0.4-5.4); Lymphocytes % (auto) 12.8 % (10.0-50.0); Mean Corpuscular Hemoglobin 33.1 pg (28.0-32.0); Mean Corpuscular Hgb Conc. 34.1 g/dL (32.0-36.0); Monocytes # (auto) 0.7 10 ^3/uL (0-1.3); Neutrophils % (auto) 80.4 % (37.0-80.0); Red Blood Cells 4.35 10^6/uL (4.0-5.20); Red Cell Distribution Width 13.7 % (11.8-14.3); White Blood Cell 11.2 10^3/uL (4.4-10.8)
[2023-06-24 06:50] LABS: Alanine Aminotransferase 21 U/L (7-40); Alkaline Phosphatase 59 U/L (46-116); Anion Gap 9 (5-15); BUN/Creatinine Ratio 8.8 (10.0-20.0); Blood Urea Nitrogen 5 mg/dL (9-23); Calcium 9.3 mg/dL (8.7-10.4); Carbon Dioxide 24 mmol/L (20-30); Chloride 105 mmol/L (98-107); Glucose 91 mg/dL (74-106); Potassium 3.4 mmol/L (3.5-5.1); Sodium 138 mmol/L (136-145)
[2023-06-24 06:52] LABS: Albumin 4.2 g/dL (3.2-4.8); Aspartate Aminotransferase 16 U/L (13-40); Total Protein 6.6 g/dL (5.7-8.2)
[2023-06-24 08:00] VITALS: PULSE 92; PULSE 99; RESP 18; O2SAT 96
[2023-06-24 09:09] VITALS: BP 130/74; PULSE 99; RESP 17; TEMP 99.1; O2SAT 96
[2023-06-24] MEDS: ENOXAPARIN SOD 40 MG/0.4 ML SYRINGE SC SCH (09:25)
[2023-06-24] MEDS: predniSONE 5 MG TAB PO SCH (09:26)
[2023-06-24] MEDS: dilTIAZem 120MG ER CAP PO SCH (09:27)
[2023-06-24] MEDS: ASPirin-EC 81 mg tab PO SCH (09:30)
[2023-06-24] MEDS: amLODIPine BESYLATE 5 MG TAB PO SCH (10:00)
[2023-06-24] MEDS ORDERED: POTASSIUM EFFERVESENT TAB 25 MEQ PO ONE (11:45)
[2023-06-24] MEDS ORDERED: levoFLOXacin 500MG 100 ML IV ONE (11:45)
[2023-06-24 13:04] VITALS: BP 148/85; PULSE 98; RESP 18; TEMP 98.5; O2SAT 95
[2023-06-24] MEDS: FAMOTIDINE 20 MG TAB PO SCH (16:42)
[2023-06-24 17:30] VITALS: BP 136/79; PULSE 108; RESP 16; TEMP 98.6; O2SAT 95
[2023-06-24] MEDS: ACETAMINOPHEN 325 MG TAB PO PRN (19:43)
[2023-06-24 20:00] VITALS: PULSE 101; PULSE 99; RESP 17; O2SAT 95
[2023-06-24] MEDS: LISINOPRIL 20 MG TAB PO SCH (21:51)
[2023-06-24 22:00] VITALS: BP_SYST 104; BP_SYST 139; BP_DIAS 51; BP_DIAS 86; PULSE 71; PULSE 96; RESP 16; RESP 17; TEMP 97.4; TEMP 98; O2SAT 100; O2SAT 94
[2023-06-25] VITALS (7 sets, daily range): BP systolic 138–164; BP diastolic 74–94; PULSE 91–106; RESP 18–20; TEMP 98.1–98.5; O2SAT 93–97
[2023-06-25 06:01] LABS: Basophils # (auto) 0.1 10 ^3/uL (0-0.2); Basophils % (auto) 0.8 % (0.0-2.0); Eosinophils # (auto) 0.1 10 ^3/uL (0-0.8); Eosinophils % (auto) 1.3 % (0.0-7.0); Hematocrit 41.1 % (36.0-46.0); Lymphocytes # (auto) 1.8 10 ^3/uL (0.4-5.4); Lymphocytes % (auto) 26.2 % (10.0-50.0); Mean Corpuscular Hemoglobin 32.6 pg (28.0-32.0); Mean Corpuscular Volume 96.1 fL (80.0-100.0); Monocytes # (auto) 0.7 10 ^3/uL (0-1.3); Monocytes % (auto) 9.7 % (0.0-12.0); Neutrophils # (auto) 4.3 10 ^3/uL (1.6-8.6); Nucleated Red Blood Cells % 0.1 %; Red Blood Cells 4.28 10^6/uL (4.0-5.20); Red Cell Distribution Width 13.5 % (11.8-14.3)
[2023-06-25] MEDS: ACETAMINOPHEN 325 MG TAB PO PRN ×2 (06:03→18:30)
[2023-06-25] MEDS: SODIUM CHLOR 0.9% PF (SALINE LOCK) 10ML VIAL/SYR IV SCH ×3 (06:03→22:14)
[2023-06-25 06:31] LABS: Alanine Aminotransferase 17 U/L (7-40); Alkaline Phosphatase 57 U/L (46-116); Anion Gap 7 (5-15); BUN/Creatinine Ratio 12.9 (10.0-20.0); Blood Urea Nitrogen 8 mg/dL (9-23); Calcium 9.5 mg/dL (8.7-10.4); Carbon Dioxide 27 mmol/L (20-30); Chloride 109 mmol/L (98-107); Glucose 112 mg/dL (74-106); Potassium 3.3 mmol/L (3.5-5.1); Sodium 143 mmol/L (136-145)
[2023-06-25 06:32] LABS: Albumin 4.1 g/dL (3.2-4.8); Aspartate Aminotransferase 12 U/L (13-40); Bilirubin, Total 0.9 mg/dL (0.2-1.0); Total Protein 6.4 g/dL (5.7-8.2)
[2023-06-25] MEDS: levoFLOXacin 500MG 100 ML IV SCH (09:06)
[2023-06-25] MEDS: predniSONE 5 MG TAB PO SCH (09:06)
[2023-06-25] MEDS: dilTIAZem 120MG ER CAP PO SCH (09:07)
[2023-06-25] MEDS: ENOXAPARIN SOD 40 MG/0.4 ML SYRINGE SC SCH (09:07)
[2023-06-25] MEDS: ASPirin-EC 81 mg tab PO SCH (09:07)
[2023-06-25] MEDS: amLODIPine BESYLATE 5 MG TAB PO SCH (10:00)
[2023-06-25] MEDS ORDERED: POTASSIUM EFFERVESENT TAB 25 MEQ PO ONE (12:00)
[2023-06-25] MEDS ORDERED: dilTIAZem HCL 60 MG TAB PO ONE (15:00)
[2023-06-25] MEDS: FAMOTIDINE 20 MG TAB PO SCH (15:37)
[2023-06-25] MEDS: SOD CHL 0.9%/ KCL 40MEQ 1,000 ML IV SCH (17:16)
[2023-06-25] MEDS ORDERED: LISINOPRIL 20 MG TAB PO SCH (22:00)
[2023-06-25] MEDS: LISINOPRIL 20 MG TAB PO SCH (22:13)
[2023-06-26] VITALS (8 sets, daily range): BP systolic 123–158; BP diastolic 76–103; PULSE 80–107; RESP 16–20; TEMP 97.9–98.3; O2SAT 94–97
[2023-06-26] MEDS: SOD CHL 0.9%/ KCL 40MEQ 1,000 ML IV SCH ×2 (04:45→13:20)
[2023-06-26] MEDS: HYDROcodone-ACET 5/325MG TAB PO PRN (04:45)
[2023-06-26] MEDS: SODIUM CHLOR 0.9% PF (SALINE LOCK) 10ML VIAL/SYR IV SCH ×3 (05:09→21:32)
[2023-06-26] MEDS ORDERED: dilTIAZem 120MG ER CAP PO SCH (10:00)
[2023-06-26] MEDS: predniSONE 5 MG TAB PO SCH (10:06)
[2023-06-26] MEDS: ENOXAPARIN SOD 40 MG/0.4 ML SYRINGE SC SCH (10:06)
[2023-06-26] MEDS: levoFLOXacin 500MG 100 ML IV SCH (10:06)
[2023-06-26] MEDS: dilTIAZem HCL 180MG ER CAP PO SCH (10:06)
[2023-06-26] MEDS: ASPirin-EC 81 mg tab PO SCH (10:06)
[2023-06-26] MEDS: traMADol HCL 50 MG TAB PO PRN ×2 (12:34→17:39)
[2023-06-26] MEDS ORDERED: DENO60SO SC (13:26)
[2023-06-26] MEDS ORDERED: DILT60TA PO (13:26)
[2023-06-26] MEDS ORDERED: LISI20TA56 PO (13:27)
[2023-06-26] MEDS: FAMOTIDINE 20 MG TAB PO SCH (17:23)
[2023-06-26] MEDS: LISINOPRIL 20 MG TAB PO SCH (17:24)
[2023-06-27] MEDS: SOD CHL 0.9%/ KCL 40MEQ 1,000 ML IV SCH (01:08)
[2023-06-27 05:00] VITALS: BP 139/95; PULSE 92; RESP 19; TEMP 98; O2SAT 96
[2023-06-27] MEDS: SODIUM CHLOR 0.9% PF (SALINE LOCK) 10ML VIAL/SYR IV SCH ×2 (05:14→13:46)
[2023-06-27] MEDS: traMADol HCL 50 MG TAB PO PRN ×2 (06:23→12:50)
[2023-06-27 08:00] VITALS: PULSE 90; RESP 18; O2SAT 94
[2023-06-27 08:59] VITALS: BP 139/77; PULSE 90; RESP 18; TEMP 98.2; O2SAT 94
[2023-06-27] MEDS: levoFLOXacin 500MG 100 ML IV SCH (09:54)
[2023-06-27] MEDS: ENOXAPARIN SOD 40 MG/0.4 ML SYRINGE SC SCH (09:55)
[2023-06-27] MEDS: ASPirin-EC 81 mg tab PO SCH (09:55)
[2023-06-27] MEDS: predniSONE 5 MG TAB PO SCH (09:55)
[2023-06-27] MEDS: dilTIAZem HCL 180MG ER CAP PO SCH (09:55)
[2023-06-27] MEDS ORDERED: ASPI1TAB20 PO (12:29)
[2023-06-27] MEDS ORDERED: LISI20TA56 PO (12:29)
[2023-06-27] MEDS ORDERED: AMLO1TAB22 PO (12:29)
[2023-06-27] MEDS ORDERED: LEVO500T91 PO (12:29)
[2023-06-27] MEDS ORDERED: DILT60TA PO (12:29)
[2023-06-27 13:00] VITALS: BP 132/90; PULSE 90; RESP 20; TEMP 98; O2SAT 95
[2023-06-27 13:19] VITALS: BP 139/77; PULSE 90
== END 2023-06-27 14:17 | disposition home or self-care (01) | DRG 137 ==
LOC: ER 20:00 → TELE 06-23 01:32 → TELE-CENTR 06-23 15:42
PROVIDERS: ADMIT Internal Medicine; ATTEND Internal Medicine
DX: J15.69 Pneumonia due to other Gram-negative bacteria (principal); I11.0 Hypertensive heart disease with heart failure; I50.9 Heart failure, unspecified; I20.0 Unstable angina; I16.0 Hypertensive urgency; I34.1 Nonrheumatic mitral (valve) prolapse; E66.9 Obesity, unspecified; E87.6 Hypokalemia; M79.7 Fibromyalgia; E04.2 Nontoxic multinodular goiter; J45.909 Unspecified asthma, uncomplicated; Z88.2 Allergy status to sulfonamides; Z68.26 Body mass index [BMI] 26.0-26.9, adult
CPT/HCPCS: 36415; 70496; 71045; 76536; 80053; 80307; 80320; 81001; 82150; 83690; 83735; 83880; 84484; 85025; 85610; 85730; 93005; 93306; 93886; 99291; G0378; J1956; J2001; J2405; J3480

== ENCOUNTER 2023-12-04 08:53 | Emergency (ER) | payer MEDICAID ==
[~2023-12-04] VITALS: Ht 157.5 cm; Wt 65.5 kg
[~2023-12-04 08:53] MED LIST changes: +DENO60SO SC; +DILT60TA PO; +LEVO500T91 PO; +LISI20TA56 PO
[2023-12-04 09:21] LABS: Urine Bacteria None Seen /hpf (None Seen); Urine WBC None Seen /hpf (0 - 5)
[2023-12-04 09:33] LABS: Urine Blood Negative /uL (Negative); Urine Clarity Clear (Clear); Urine Protein, UAD Negative (Negative); Urine Specific Gravity 1.002 (1.001-1.035); Urine Urobilinogen Normal (Negative); Urine pH 6.5 (5.0-9.0)
[2023-12-04 09:42] LABS: Urine Color Light Yellow (Yellow)
[2023-12-04] MEDS ORDERED: PRED20TA2 PO (11:18)
[2023-12-04 11:25] VITALS: BP 136/86; PULSE 98; RESP 17; TEMP 98.7; O2SAT 98
== END 2023-12-04 11:28 | disposition home or self-care (01) ==
LOC: ER 08:53
DX: T63.441A Toxic effect of venom of bees, accidental (unintentional), initial encounter (principal); M19.90 Unspecified osteoarthritis, unspecified site; J45.909 Unspecified asthma, uncomplicated; Z85.9 Personal history of malignant neoplasm, unspecified; I10 Essential (primary) hypertension; Z98.51 Tubal ligation status; Z90.89 Acquired absence of other organs; Z88.6 Allergy status to analgesic agent; Z79.899 Other long term (current) drug therapy; Y92.89 Other specified places as the place of occurrence of the external cause
CPT/HCPCS: 73130; 81001

== ENCOUNTER 2025-02-26 14:19 | Inpatient (IN) | payer MEDICARE, MEDICAID ==
[~2025-02-26] VITALS: Ht 157.5 cm; Wt 63.9 kg
[~2025-02-26 14:19] MED LIST changes: +PRED20TA2 PO
--- NOTE | 2025-02-26 14:35 | ED.PDOC ---
History of Present Illness HPI Comments 65-year-old female BIBJustin with prior medical history of fibromyalgia, hypertension, [place]-2 years ago and the chief complaint of chest pain/palpitations. EMS report that the patient was relaxing on her couch when she felt CP/palpitations for which she called EMS. Patient notes on taking 324 mg of aspirin prior to EMS arrival. When EMS arrived on scene the patient has a heart rate of 120 blood sugar of 190 and in route was given a 12 gauge IV to the left forearm and given fluids. In the ER, patient is currently complaining of palpitations. Denies chills, fever, N/V/D, SOB. No other associated symptoms, modifiers, recent injuries or sick contacts present at this time. Chief Complaint: Palpitations Time Seen by MD: 14:30 Primary Care Provider: MO Reviewed Notes: Nurses Notes, Medications, Allergies Allergies: Coded Allergies: Amoxicillin (Verified Allergy, Unknown, 02/26/25) Sulfa Antibiotics (Verified Allergy, Unknown, 11/07/19) Home Meds Active Scripts Prednisone (Prednisone) 20 Mg Tab, 20 MG PO BID PRN for 5 Days, #10 MG Prov:EVANGELIST MICHELLE MD 12/04/23 Levofloxacin Hemihydrate (LEVAQUIN 500 MG) 500 Mg Tab, 500 MG PO DAILY for 5 Days, #5 TAB Prov:TREVON REAL MD 06/27/23 Lisinopril (Lisinopril) 20 Mg Tab, 20 MG PO DAILY for 30 Days, #30 TAB Prov:TREVON REAL MD 06/27/23 Diltiazem Hcl (Diltiazem Hcl) 60 Mg Tab, 120 MG PO DAILY for 30 Days, #60 TAB Extended-release Prov:TREVON REAL MD 06/27/23 Aspirin (Aspir-81) 81 Mg Tab, 1 TAB PO DAILY for 30 Days, #30 TAB 5 Refills Prov:TREVON REAL MD 06/27/23 Amlodipine Besylate (Amlodipine Besylate) 5 Mg Tab, 10 MG PO DAILY for 30 Days, #60 TAB Prov:TREVON REAL MD 06/27/23 Reported Medications Denosumab (Prolia) 60 Mg/Ml Cristina, 60 MG SC [id number] 06/26/23 Ranitidine Hcl (Zantac) 300 Mg Tab, 1 TAB PO QPM, #90 TAB 3 Refills 11/29/17 Naproxen (NAPROSYN TABLET) 500 Mg Tb, 1 TAB PO BID, #60 TAB 1 Refill 11/29/17 Prednisone (PREDNISONE) 5 Mg Tb, 10 MG PO DAILY 09/21/13 Tramadol Hcl (Tramadol Hcl) 50 Mg Tab, 50 MG PO, TAB 09/21/13 Information Source: Patient Mode of Arrival: EMS Severity: Moderate Timing: Minutes Duration: Since onset, Minutes Prehospital treatment: None Past Medical History PAST MEDICAL HISTORY: Arthritis, Asthma, Cancer, HTN, [place] (Two years ago) Past Medical History (Other): Fibromyalgia Surgical History: BTL, Tonsillectomy OFFICE ADMINISTRATION INSTRUCTOR History: No Pertinent OFFICE ADMINISTRATION INSTRUCTOR History Family History Family History: Reviewed,noncontributory to illness, Unknown Social History Smoker: Non-Smoker Alcohol: Denies ETOH Use Drugs: Denies Drug Use Lives In: Home Constitutional: denies: chills, diaphoresis, fatigue, fever, malaise, sweats, weakness, others EENTM: denies: blurred vision, double vision, ear bleeding, ear discharge, ear drainage, ear pain, ear ringing, eye pain, eye redness, hearing loss, mouth pain, mouth swelling, nasal discharge, nose bleeding, nose congestion, nose pain, photophobia, tearing, throat pain, throat swelling, voice changes, others Respiratory: denies: cough, hemoptysis, orthopnea, SOB at rest, shortness of breath, SOB with excertion, stridor, wheezing, others Cardiovascular: reports: chest pain, palpitations; denies: dizzy spells, diaphoresis, Dyspnea on exertion, edema, irregular heart beat, left arm pain, lightheadedness, PND, syncope, others Gastrointestinal: denies: abdomen distended, abdominal pain, blood streaked bowels, constipated, diarrhea, dysphagia, difficulty swallowing, hematemesis, melena, nausea, poor appetite, poor fluid intake, rectal bleeding, rectal pain, vomiting, others Genitourinary: denies: abnormal vagina bleeding, burning, dyspareunia, dysuria, flank pain, frequency, hematuria, incontinence, pain, , vagina discharge, urgency, others Neurological: denies: dizziness, fainting, headache, left sided numbness, left sided weakness, numbness, paresthesia, pre-existing deficit, right sided numbness, right sided weakness, seizure, speech problems, tingling, tremors, weakness, others Musculoskeletal: denies: back pain, gout, joint pain, joint swelling, muscle pain, muscle stiffness, neck pain, others Integumetry: denies: bruises, change in color, change in hair/nails, dryness, laceration, lesions, lumps, rash, wounds, others Allergic/Immunocompromised: denies: Difficulty Healing, Frequent Infections, Hives, Itching, others Hematologic/Lymphatic: denies: anemia, blood clots, easy bleeding, easy bruising, swollen glands, others Endocrine: denies: excessive hunger, excessive sweating, excessive thirst, excessive urination, flushing, intolerance to cold, intolerance to heat, unexplained weight gain, unexplained weight loss, others Psychiatric: denies: anxiety, bipolar disorder, depression, hopeless, panic disorder, schizophrenia, sleepless, suicidal, others All Other Systems: Reviewed and Negative Physical Exam General Appearance: No Apparent Distress, Normal HEENT: Normal ENT Inspection, Pharynx Normal, TMs Normal Neck: Full Range of Motion, Non-Tender, Normal, Normal Inspection Respiratory: Chest Non-Tender, Lungs Clear, No Accessory Muscle Use, No Respiratory Distress, Normal Breath Sounds Cardiovascular: No Edema, No JVD, No Murmur, No Gallop, Normal Peripheral Pulses, Regular Rate/Rhythm Breast Exam: Deferred Gastrointestinal: No Organomegaly, Non Tender, No Pulsatile Mass, Normal Bowel Sounds, Soft Genitalia: Deferred Pelvic: Deferred Rectal: Deferred Extremities: No calf tenderness, Normal capillary refill, Normal inspection, Normal range of motion, Non-tender, No pedal edema Musculoskeletal : Apperance: Normal Neurologic: Alert, finish photographer II-XII nml as Tested, No Motor Deficits, Normal Affect, Normal Mood, No Sensory Deficits Cerebellar Function: Normal Reflexes: Normal Skin: Dry, Normal Color, Warm Lymphatic: No Adenopathy Was a procedure done? Was a procedure done?: No Differential Dx Considerations may include: ACS, CVA, viral syndrome, electrolyte abnormalities X-Ray, Labs, Meds, VS Vital Signs Date Time Temp Pulse Resp B/P (MAP) Pulse Ox O2 Delivery O2 Flow Rate FiO2 02/26/25 15:21 96 02/26/25 14:40 122 20 96 Room Air* 0 21 02/26/25 14:40 98.3 116 20 109/70 (83) 96 98.3 02/26/25 14:19 122 02/26/25 14:19 98.3 128 20 113/70 98 98.3 Lab Test 02/26/25 15:53 02/26/25 14:53 02/26/25 14:30 Range/Units Troponin I High Sensitivity Pending 8 </=34 ng/L White Blood Count 11.4 H 4.4-10.8 10^3/uL Red Blood Count 4.01 4.0-5.20 10^6/uL Hemoglobin 13.5 12.2-16.2 g/dL Hematocrit 38.4 36.0-46.0 % Mean Corpuscular Volume 95.9 80.0-100.0 fL Mean Corpuscular Hemoglobin 33.7 H 28.0-32.0 pg Mean Corpuscular Hemoglobin Concent 35.1 32.0-36.0 g/dL Red Cell Distribution Width 13.3 11.8-14.3 % Platelet Count 329 140-450 10^3/uL Mean Platelet Volume 6.8 L 6.9-10.8 fL Neutrophils (%) (Auto) 68.2 37.0-80.0 % Lymphocytes (%) (Auto) 21.6 10.0-50.0 % Monocytes (%) (Auto) 7.5 0.0-12.0 % Eosinophils (%) (Auto) 1.8 0.0-7.0 % Basophils (%) (Auto) 0.9 0.0-2.0 % Neutrophils # (Auto) 7.8 1.6-8.6 10 ^3/uL Lymphocytes # (Auto) 2.5 0.4-5.4 10 ^3/uL Monocytes # (Auto) 0.9 0-1.3 10 ^3/uL Eosinophils # (Auto) 0.2 0-0.8 10 ^3/uL Basophils # (Auto) 0.1 0-0.2 10 ^3/uL Nucleated Red Blood Cells 0.1 % Sodium Level 143 136-145 mmol/L Potassium Level 3.7 3.5-5.1 mmol/L Chloride Level 107 98-107 mmol/L Carbon Dioxide Level 26 20-31 mmol/L Anion Gap 10 5-15 Blood Urea Nitrogen 18 9-23 mg/dL Creatinine 0.84 0.550-1.02 mg/dL Glomerular Filtration Rate Calc 77 >90 mL/min BUN/Creatinine Ratio 21.4 H 10.0-20.0 Serum Glucose 96 74-106 mg/dL Calcium Level 9.4 8.7-10.4 mg/dL Urine Color Colorless Yellow Urine Clarity Clear Clear Urine pH 6.0 5.0-9.0 Urine Specific [place] 1.004 1.001-1.035 Urine Protein Negative Negative Urine Ketones Negative Negative Urine Blood Negative Negative /uL Urine Nitrite Negative Negative Urine Bilirubin Negative Negative Urine Urobilinogen Normal Negative mg/dL Urine Leukocyte Esterase 2+ Negative /uL Urine RBC 1 0 - 4 /hpf Urine Microscopic WBC 3 0-5 /HPF Urine Squamous Epithelial Cells Few <5 /hpf Urine Bacteria None seen None Seen /hpf Urine Yeast (Budding) Occasional None Seen /hpf Urine Glucose Normal Normal mg/dL Time of 1ST Reevaluation: 15:00 Reevaluation 1ST: Unchanged Patient Education/Counseling: Diagnosis, Treatment, Prognosis Family Education/Counseling: No Family Present SEPSIS Sepsis Screen Date sepsis recognized/suspect: Feb 26, 2025 Time Sepsis recognized/suspect: 1412 Recent Procedure: No On Antibiotic Therapy: No Respiratory Rate >20: No Heart Rate >90: Yes Temp<36 C (96.8 F) or >38.3 C: No SBP <90 or MAP <65 mmHG: No New Acute Mental Status Change: No Is the patient on CPAP, BIPAP,: No Physician Orders Electrocardigram (02/26/25 17:24) Chest Portable (02/26/25 14:30) Troponin-I Hs (02/26/25 15:30) Troponin-I Hs (02/26/25 17:30) Vital Signs Date Time Temp Pulse Resp B/P (MAP) Pulse Ox O2 Delivery O2 Flow Rate FiO2 02/26/25 15:21 96 02/26/25 14:40 122 20 96 Room Air* 0 21 02/26/25 14:40 98.3 116 20 109/70 (83) 96 98.3 02/26/25 14:19 122 02/26/25 14:19 98.3 128 20 113/70 98 98.3 Laboratory Tests Test 02/26/25 14:53 White Blood Count 11.4 10^3/uL (4.4-10.8) H Departure 1 Departure Time of Disposition: 16:29 (Patient presented with chest pain that was concerning for possible STEMI, ACS, PE, Pneumonia, Muscle Strain, COPD, Dissection. Data: 1. I ordered and reviewed the result of at least 3 labs including a CBC, BMP, and Troponin. 2. I independently interpreted the following tests: EKG which shows sinus arrhythmia and Chest X-ray which shows benign chest.Risk:This patient has a high risk of morbidity due to further diagnostic testing or treatment and may suffer from an acute cardiac or respiratory disorder. Workup reveals concern for ACS and patient should be admitted for further workup and possible expert consultation. ) Impression: Primary Impression: Acute chest pain Additional Impressions: Shortness of breath Palpitations Disposition: ADMITTED INPATIENT Admit to: Med Surg Condition: Guarded Critical Care Note Critical Care Time?: Yes Critical care comment: Acute chest pain Authorized and Performed by: Chema Eli MD Total critical care time: Approximately 37 minutes Due to a high probability of clinically significant, life threatening deterioration, the patient required my highest level of preparedness to intervene emergently and I personally spent this critical care time directly and personally managing the patient. This critical care time included obtaining a history; examining the patient; pulse oximetry; ordering and review of studies; arranging urgent treatment with development of a management plan; evaluation of patient's response to treatment; frequent reassessment; and, discussions with other providers. This critical care time was performed to assess and manage the high probability of imminent, life-threatening deterioration that could result in multi-organ failure. It was exclusive of separately billable procedures and treating other patients and teaching time. Please see my other sections and the rest of the note for further information on patient assessment and treatment. Stability Stability form required: No I personally scribed for CHEMA ELI MD ([email or web address]) on 02/26/25 at 14:34. Electronically submitted by Brett Montelongo ([email or web address]). CHEMA ELI MD Feb 26, 2025 14:34
[2025-02-26 14:40] VITALS: PULSE 122; RESP 20; O2SAT 96
--- NOTE | 2025-02-26 15:09 | DVH ---
INDICATION: cp TECHNIQUE: Frontal view of the chest. COMPARISON: XY CHEST PORTABLE on DOS: 06/25/23, XY CHEST PORTABLE on DOS: 06/24/23, XY CHEST XRAY 1 VIE W on DOS: 06/22/23, XY CHEST PORTABLE on DOS: 09/07/22, CHEST TWO VIEWS ROUTINE on DOS: 01/15/21 FINDINGS: . The heart and mediastinal contours are grossly unremarkable. There is no evidence of pleural disea se. The lungs are clear. The bony structures of the chest are intact without fracture. IMPRESSION: 1. No evidence of acute disease.
[2025-02-26 15:13] LABS: Hematocrit 38.4 % (36.0-46.0); Hemoglobin 13.5 g/dL (12.2-16.2); Mean Corpuscular Hemoglobin 33.7 pg (28.0-32.0); Mean Corpuscular Volume 95.9 fL (80.0-100.0); Nucleated Red Blood Cells % 0.1 %
--- NOTE | 2025-02-26 15:15 | ECG ---
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
--- NOTE | 2025-02-26 15:25 | ECG ---
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
[2025-02-26 15:35] LABS: Potassium 3.7 mmol/L (3.5-5.1); Sodium 143 mmol/L (136-145)
[2025-02-26 15:36] LABS: Anion Gap 10 (5-15); Calcium 9.4 mg/dL (8.7-10.4); Carbon Dioxide 26 mmol/L (20-31)
[2025-02-26 15:37] LABS: Urine Budding Yeast OCCASIONAL /hpf (None Seen); Urine Protein, UAD Negative (Negative)
[2025-02-26 15:41] LABS: BUN/Creatinine Ratio 21.4 (10.0-20.0); Blood Urea Nitrogen 18 mg/dL (9-23); Chloride 107 mmol/L (98-107); Glucose 96 mg/dL (74-106)
--- NOTE | 2025-02-26 17:18 | ECG ---
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
[2025-02-26] MEDS ORDERED: MORPHINE SULFATE INJ 2 MG/ml SYRG IV PRN (19:45)
[2025-02-26] MEDS ORDERED: NITROGLYCERIN 0.4 MG SL TAB SL PRN (19:45)
[2025-02-26] MEDS ORDERED: ONDANSETRON HCL 4 MG/2 ML VIAL IV PRN (19:45)
[2025-02-26 21:06] VITALS: BP 112/74; PULSE 84; RESP 18; TEMP 97.9; O2SAT 96
[2025-02-26 22:00] VITALS: BP 112/74; PULSE 84; RESP 18; TEMP 97.9; O2SAT 96
[2025-02-27] VITALS (8 sets, daily range): BP systolic 92–116; BP diastolic 58–80; PULSE 70–89; RESP 16–18; TEMP 97.5–98.9; O2SAT 93–97
--- NOTE | 2025-02-27 01:02 | DVHHP2 ---
History of Present Illness Reason for Visit: Chest pain History of Present Illness 65-year-old female presents for evaluation of chest pain. Patient reports developing chest pain and palpitations today while sitting in her couch. Patient currently denies chest pain but reports occasional palpitations. Reports mild shortness for breath. No nausea or vomiting. No other acute complaints reported. Past Medical History Asthma, cancer, mi, hypertension, fibromyalgia Past Surgical History BTL, tonsillectomy Family History Noncontributory Smoke: No ALCOHOL: none Drugs: None Lives: with Family Review of Systems Review of Systems Review of systems are currently negative otherwise addressed in HPI. Allergies: Coded Allergies: Amoxicillin (Verified Allergy, Unknown, 02/26/25) Sulfa Antibiotics (Verified Allergy, Unknown, 11/07/19) Medications Current Medications Medications Dose Ordered Sig/Teresa Route Start Time Stop Time Status Last Admin Dose Admin Amlodipine Besylate 10 mg DAILY PO 02/27/25 10:00 Aspirin 81 mg DAILY PO 02/27/25 10:00 Diltiazem HCl 120 mg DAILY PO 02/27/25 10:00 Lisinopril 20 mg DAILY PO 02/27/25 10:00 Ondansetron HCl 4 mg Q4HP PRN IV 02/26/25 19:45 Enoxaparin Sodium 40 mg DAILY SC 02/27/25 10:00 Acetaminophen 650 mg Q6HP PRN PO 02/26/25 19:45 Nitroglycerin 0.4 mg Q5MINP PRN SL 02/26/25 19:45 Morphine Sulfate 2 mg Q30M PRN IV 02/26/25 19:45 Exam Vital Signs Vital Signs Date Time Temp Pulse Resp B/P (MAP) Pulse Ox O2 Delivery O2 Flow Rate FiO2 02/26/25 21:06 97.9 84 18 112/74 (87) 96 97.9 02/26/25 14:40 Room Air* 0 21 Exam Gen: 65-year-old female in mild distress Skin: Warm, dry, normal color and texture, no rash. HEENT: Normocephalic atraumatic, mucous membranes moist and pink. Neck: Cervical and supraclavicular nodes normal without enlargement, trachea is midline, thyroid gland is normal without masses. Pulmonary: Clear to auscultation and percussion bilaterally. Cardiac: Regular rate and rhythm. No murmur Abdomen: Soft, nontender, nondistended, bowel sounds present all 4 quadrants, no guarding, no rigidity, no organomegaly. Extremities: No cyanosis, clubbing, no edema Neuro: Cranial nerves II through XII grossly intact, normal affect and speech, no focal motor deficits. Labs/Xrays ORDERING PHYSICIAN: CHEMA ELI MD PROCEDURE(s): CXRP - CHEST PORTABLE REASON: cp ORDER NUMBER(s): [id number], ACCESSION NUMBER(s): [id number] INDICATION: cp TECHNIQUE: Frontal view of the chest. COMPARISON: XY CHEST PORTABLE on DOS: 06/25/23, XY CHEST PORTABLE on DOS: 06/24/23, XY CHEST XRAY 1 VIEW on DOS: 06/22/23, XY CHEST PORTABLE on DOS: 09/07/22, CHEST TWO VIEWS ROUTINE on DOS: 01/15/21 FINDINGS: . The heart and mediastinal contours are grossly unremarkable. There is no evidence of pleural disease. The lungs are clear. The bony structures of the chest are intact without fracture. IMPRESSION: 1. No evidence of acute disease. Labs Test 02/26/25 18:44 02/26/25 14:53 02/26/25 14:30 Range/Units Troponin I High Sensitivity 20 </=34 ng/L White Blood Count 11.4 H 4.4-10.8 10^3/uL Red Blood Count 4.01 4.0-5.20 10^6/uL Hemoglobin 13.5 12.2-16.2 g/dL Hematocrit 38.4 36.0-46.0 % Mean Corpuscular Volume 95.9 80.0-100.0 fL Mean Corpuscular Hemoglobin 33.7 H 28.0-32.0 pg Mean Corpuscular Hemoglobin Concent 35.1 32.0-36.0 g/dL Red Cell Distribution Width 13.3 11.8-14.3 % Platelet Count 329 140-450 10^3/uL Mean Platelet Volume 6.8 L 6.9-10.8 fL Neutrophils (%) (Auto) 68.2 37.0-80.0 % Lymphocytes (%) (Auto) 21.6 10.0-50.0 % Monocytes (%) (Auto) 7.5 0.0-12.0 % Eosinophils (%) (Auto) 1.8 0.0-7.0 % Basophils (%) (Auto) 0.9 0.0-2.0 % Neutrophils # (Auto) 7.8 1.6-8.6 10 ^3/uL Lymphocytes # (Auto) 2.5 0.4-5.4 10 ^3/uL Monocytes # (Auto) 0.9 0-1.3 10 ^3/uL Eosinophils # (Auto) 0.2 0-0.8 10 ^3/uL Basophils # (Auto) 0.1 0-0.2 10 ^3/uL Nucleated Red Blood Cells 0.1 % Sodium Level 143 136-145 mmol/L Potassium Level 3.7 3.5-5.1 mmol/L Chloride Level 107 98-107 mmol/L Carbon Dioxide Level 26 20-31 mmol/L Anion Gap 10 5-15 Blood Urea Nitrogen 18 9-23 mg/dL Creatinine 0.84 0.550-1.02 mg/dL Glomerular Filtration Rate Calc 77 >90 mL/min BUN/Creatinine Ratio 21.4 H 10.0-20.0 Serum Glucose 96 74-106 mg/dL Calcium Level 9.4 8.7-10.4 mg/dL Urine Color Colorless Yellow Urine Clarity Clear Clear Urine pH 6.0 5.0-9.0 Urine Specific [place] 1.004 1.001-1.035 Urine Protein Negative Negative Urine Ketones Negative Negative Urine Blood Negative Negative /uL Urine Nitrite Negative Negative Urine Bilirubin Negative Negative Urine Urobilinogen Normal Negative mg/dL Urine Leukocyte Esterase 2+ Negative /uL Urine RBC 1 0 - 4 /hpf Urine Microscopic WBC 3 0-5 /HPF Urine Squamous Epithelial Cells Few <5 /hpf Urine Bacteria None seen None Seen /hpf Urine Yeast (Budding) Occasional None Seen /hpf Urine Glucose Normal Normal mg/dL SEPSIS Sepsis Screen Date sepsis recognized/suspect: Feb 26, 2025 Time Sepsis recognized/suspect: 1440 Recent Procedure: No On Antibiotic Therapy: No Respiratory Rate >20: No Heart Rate >90: Yes Temp<36 C (96.8 F) or >38.3 C: No SBP <90 or MAP <65 mmHG: No New Acute Mental Status Change: No Is the patient on CPAP, BIPAP,: No Physician Orders Amlodipine Tablet (Norvasc Tablet) (02/27/25 10:00) Aspirin Tablet (02/27/25 10:00) Diltiazem Er Capsule (Cardizem Er Capsul (02/27/25 10:00) Lisinopril Tablet (Zestril Tablet) (02/27/25 10:00) Basic Metabolic Panel (02/27/25 04:00) Admit (02/26/25 19:36) Ondansetron Hcl (Zofran) (02/26/25 19:45) Enoxaparin Sodium (Lovenox) (02/27/25 10:00) Cardiac Diet-2gna,Lofat,Lochol (02/27/25 Breakfast) Echo 2d Mode Cardiac Dop (02/26/25 19:36) Condition: Fair (02/26/25 19:36) Acetaminophen Tablet (Tylenol Tablet) (02/26/25 19:45) Bedrest With Bathroom Privileg (02/26/25 19:36) Nitroglycerin Sublingual (Ntrostat Subli (02/26/25 19:45) Morphine Sulfate Injection (02/26/25 19:45) Stat Ekg For Chest Pain (02/26/25 19:36) Notify Md Of Changes From Base (02/26/25 19:36) Marketing Systems Analyst For 24 Hours (02/26/25 19:36) Emergency Dysrhythmia Protocol (02/26/25 19:36) Rhythm Strips Once Every Shift (02/26/25 19:36) Oxygen By Nasal Cannula (02/26/25 19:36) Vital Signs Date Time Temp Pulse Resp B/P (MAP) Pulse Ox O2 Delivery O2 Flow Rate FiO2 02/26/25 21:06 97.9 84 18 112/74 (87) 96 97.9 02/26/25 19:20 86 18 110/71 (84) 95 02/26/25 17:30 85 20 113/71 (85) 99 02/26/25 17:12 89 Laboratory Tests Test 02/26/25 14:53 White Blood Count 11.4 10^3/uL (4.4-10.8) H Assessment/Plan Assessment/Plan Assessment Chest pain rule out ACS Palpitations Hypertension History of MD Plan Admit the patient to telemetry to the hospitalist Echocardiogram pending Resume home medications Cardiology consultation Continue treatment per orders. Plan discussed with: Patient My Orders Orders - CRISTINA NELSON Procedure Category Date Status Time Amlodipine Tablet PHA 02/27/25 In Process (Norvasc Tablet) 10:00 Aspirin Tablet PHA 02/27/25 In Process 10:00 Diltiazem Er Capsule PHA 02/27/25 In Process (Cardizem Er Capsul 10:00 Lisinopril Tablet PHA 02/27/25 In Process (Zestril Tablet) 10:00 Basic Metabolic Panel LAB 02/27/25 Logged 04:00 Admit ADMIT 02/26/25 Transmitted 19:36 Ondansetron Hcl PHA 02/26/25 In Process (Zofran) 19:45 Enoxaparin Sodium PHA 02/27/25 In Process (Lovenox) 10:00 Cardiac DIET 02/27/25 Transmitted Diet-2gna,Lofat,Lochol Breakfast Echo 2d Mode Cardiac US 02/26/25 Logged DOP 19:36 Condition: Fair [facility] 02/26/25 In Process 19:36 Acetaminophen Tablet PHA 02/26/25 In Process (Tylenol Tablet) 19:45 Bedrest With Bathroom [facility] 02/26/25 In Process Privileg 19:36 Nitroglycerin [facility] 02/26/25 In Process Sublingual (Ntrostat 19:45 Morphine Sulfate PHA 02/26/25 In Process Injection 19:45 Stat Ekg For Chest [facility] 02/26/25 In Process Pain 19:36 Notify Md Of Changes [facility] 02/26/25 In Process From Base 19:36 Marketing Systems Analyst For [facility] 02/26/25 In Process 24 Hours 19:36 Emergency Dysrhythmia [facility] 02/26/25 In Process Protocol 19:36 Rhythm Strips Once [facility] 02/26/25 In Process Every Shift 19:36 Oxygen By Nasal RT 02/26/25 Transmitted Cannula 19:36 Date of Service: Feb 26, 2025 Billing Provider: CRISTINA NELSON Common Visit Codes: [id number] INP/OBS CARE (HIGH) CRISTINA NELSON Feb 27, 2025 01:02
[2025-02-27] MEDS ORDERED: SPIR25TA8 PO (03:25)
[2025-02-27] MEDS ORDERED: TERI600I SC (03:25)
[2025-02-27] MEDS ORDERED: CHOL20007 OR (03:25)
[2025-02-27] MEDS ORDERED: DILT30TA PO (03:25)
[2025-02-27 06:56] LABS: Potassium 4.0 mmol/L (3.5-5.1); Sodium 141 mmol/L (136-145)
[2025-02-27 06:57] LABS: Anion Gap 8 (5-15); Calcium 9.4 mg/dL (8.7-10.4); Carbon Dioxide 25 mmol/L (20-31)
[2025-02-27 06:59] LABS: Chloride 108 mmol/L (98-107)
[2025-02-27 07:02] LABS: Glucose 82 mg/dL (74-106)
[2025-02-27 07:03] LABS: BUN/Creatinine Ratio 13.6 (10.0-20.0)
[2025-02-27 07:11] LABS: Blood Urea Nitrogen 9 mg/dL (9-23)
[2025-02-27] MEDS: LISINOPRIL 20 MG TAB PO SCH (08:29)
[2025-02-27] MEDS: dilTIAZem 120MG ER CAP PO SCH (08:30)
[2025-02-27] MEDS: ENOXAPARIN SOD 40 MG/0.4 ML SYRINGE SC SCH (08:30)
[2025-02-27] MEDS: ACETAMINOPHEN 325 MG TAB PO PRN (15:07)
--- NOTE | 2025-02-27 17:33 | DVHPN2 ---
Progress Note Date Seen: Feb 27, 2025 Medical Necessity Reason Pt with a Central, PICC or Fol: No Subjective Patient reports: No new complaints Review of Systems: HEENT:Normal, CVS:Normal, RESPIRATORY:Normal, GI:Normal, :Normal, MSK:Normal, NEURO:Normal Objective vital signs Vital Sign Date Time Temp Pulse Resp B/P (MAP) Pulse Ox O2 Delivery O2 Flow Rate FiO2 02/27/25 17:04 98.9 89 17 105/73 (84) 95 98.9 02/27/25 08:00 Room Air* 0 21 Total Intake and Output 02/26/25 02/26/25 02/27/25 15:00 23:00 07:00 Intake Total 600 ml Balance 600 ml medications Current Medications Medications Dose Ordered Sig/Teresa Route Start Time Stop Time Status Last Admin Dose Admin Aspirin 81 mg DAILY PO 02/27/25 10:00 02/27/25 08:29 81 MG Diltiazem HCl 120 mg DAILY PO 02/27/25 10:00 02/27/25 08:30 120 MG Ondansetron HCl 4 mg Q4HP PRN IV 02/26/25 19:45 Acetaminophen 650 mg Q6HP PRN PO 02/26/25 19:45 02/27/25 15:07 650 MG Nitroglycerin 0.4 mg Q5MINP PRN SL 02/26/25 19:45 Morphine Sulfate 2 mg Q30M PRN IV 02/26/25 19:45 Prednisone 5 mg DAILY PO 02/28/25 10:00 UNV Tramadol HCl 50 mg Q6HP PRN PO 02/27/25 17:30 UNV Spironolactone 25 mg DAILY PO 02/28/25 10:00 UNV Examination: GENERAL:Normal, HEENT:Normal, NECK:Normal, LUNGS:Normal, CVS:Normal, ABDOMEN:Normal, MSK:Normal, SKIN:Normal, NEURO:Normal, :Normal laboratory and microbiology Laboratory Tests 02/27/25 04:42 02/26/25 14:53 Test 02/27/25 04:42 Range/Units Serum Glucose 82 74-106 mg/dL Problem List/Assessment/Plan Problem List/Assessment/Plan #1 likely svt: cardio eval #2 chest pain ?cad #3 sarcoidosis: on prednisone #4 htn #5 fibromyalgia advance care planning- full code-time spent 19 mins Plan discussed with: Patient My Orders My Orders Orders - CRISTINA MORALES MD Procedure Category Date Status Time Prednisone Tablet PHA 02/27/25 Logged 17:30 Prednisone Tablet PHA 02/28/25 Logged 10:00 * Cardiology Consult CONS 02/27/25 Transmitted 17:25 Tramadol Hcl (Ultram) PHA 02/27/25 Logged 17:30 Spironolactone PHA 02/28/25 Logged (Aldactone) 10:00 Complete Blood Count LAB 02/28/25 Verified 06:00 Comprehensive LAB 02/28/25 Verified Metabolic Panel 06:00 Magnesium LAB 02/28/25 Verified 05:00 Thyroid Stimulating LAB 02/28/25 Verified Hormone 05:00 Date of Service: Feb 27, 2025 Billing Provider: CRISTINA MORALES MD Common Visit Codes: [id number] INP/OBS CARE(HIGH) Secondary Visit Codes: [id number] CARE PLAN 30 MINUTES CRISTINA MORALES MD Feb 27, 2025 17:33
[2025-02-28] VITALS (8 sets, daily range): BP systolic 94–112; BP diastolic 52–76; PULSE 78–97; RESP 17–20; TEMP 97.5–98.7; O2SAT 94–98
[2025-02-28 04:39] LABS: Hematocrit 38.0 % (36.0-46.0); Hemoglobin 13.4 g/dL (12.2-16.2); Mean Corpuscular Hemoglobin 34.1 pg (28.0-32.0); Mean Corpuscular Volume 96.6 fL (80.0-100.0); Nucleated Red Blood Cells % 0.0 %
[2025-02-28 05:01] LABS: Alanine Aminotransferase 13 U/L (7-40); Albumin 3.9 g/dL (3.2-4.8); Alkaline Phosphatase 115 U/L (46-116); Anion Gap 9 (5-15); BUN/Creatinine Ratio 14.3 (10.0-20.0); Bilirubin, Total 0.5 mg/dL (0.2-1.0); Blood Urea Nitrogen 10 mg/dL (9-23); Calcium 9.7 mg/dL (8.7-10.4); Carbon Dioxide 26 mmol/L (20-31); Chloride 105 mmol/L (98-107); Glucose 126 mg/dL (74-106); Magnesium 1.8 mg/dL (1.6-2.6); Potassium 4.4 mmol/L (3.5-5.1); Sodium 140 mmol/L (136-145); Total Protein 6.3 g/dL (5.7-8.2)
[2025-02-28] MEDS: SPIRONOLACTONE 25 MG TAB PO SCH (09:07)
[2025-02-28 10:51] LABS: Hepatitis B Surface Antigen Negative (Negative); Hepatitis C Antibody Negative (Negative)
--- NOTE | 2025-02-28 11:03 | DVHPN2 ---
Reviewed: Care Plan, H&P, Labs, Medications, Previous Orders, Radiology Changes from previous H/P or p: No Changes Objective Vitals Vital Signs Date Time Temp Pulse Resp B/P (MAP) Pulse Ox O2 Delivery O2 Flow Rate FiO2 02/28/25 09:07 97 112/76 02/28/25 09:00 97.9 20 98 97.9 02/27/25 20:00 Room Air* 0 21 Intake/Output Intake and Output 02/28/25 07:00 Intake Total 2275 ml Balance 2275 ml Intake Oral 2275 ml # Voids 2 # Bowel Movements 1 Medications Current Medications Medications Dose Ordered Sig/Teresa Route Start Time Stop Time Status Last Admin Dose Admin Aspirin 81 mg DAILY PO 02/27/25 10:00 02/28/25 09:07 81 MG Diltiazem HCl 120 mg DAILY PO 02/27/25 10:00 02/28/25 09:07 120 MG Ondansetron HCl 4 mg Q4HP PRN IV 02/26/25 19:45 Acetaminophen 650 mg Q6HP PRN PO 02/26/25 19:45 02/27/25 15:07 650 MG Nitroglycerin 0.4 mg Q5MINP PRN SL 02/26/25 19:45 Morphine Sulfate 2 mg Q30M PRN IV 02/26/25 19:45 Prednisone 5 mg DAILY PO 02/28/25 10:00 02/28/25 09:07 5 MG Tramadol HCl 50 mg Q6HP PRN PO 02/27/25 17:30 02/28/25 09:11 50 MG Spironolactone 25 mg DAILY PO 02/28/25 10:00 02/28/25 09:07 25 MG Laboratory Results Laboratory Tests 02/28/25 04:06 Chemistry Test 02/28/25 04:06 Albumin 3.9 g/dL (3.2-4.8) Calcium Level 9.7 mg/dL (8.7-10.4) Magnesium Level 1.8 mg/dL (1.6-2.6) Total Protein 6.3 g/dL (5.7-8.2) LFT Test 02/28/25 04:06 Alanine Aminotransferase (ALT) 13 U/L (7-40) Alkaline Phosphatase 115 U/L (46-116) Aspartate Amino Transferase (AST) 15 U/L (13-40) Total Bilirubin 0.5 mg/dL (0.2-1.0) HgA1c, TSH Test 02/28/25 04:06 Thyroid Stimulating Hormone (TSH) 0.17 uIU/mL (0.55-4.78) L Urinalysis Test 02/26/25 14:30 Urine Color Colorless (Yellow) Urine Clarity Clear (Clear) Urine pH 6.0 (5.0-9.0) Urine Specific [place] 1.004 (1.001-1.035) Urine Protein Negative (Negative) Urine Ketones Negative (Negative) Urine Blood Negative /uL (Negative) Urine Nitrite Negative (Negative) Urine Bilirubin Negative (Negative) Urine Urobilinogen Normal mg/dL (Negative) Urine Leukocyte Esterase 2+ /uL (Negative) Urine RBC 1 /hpf (0 - 4) Urine Microscopic WBC 3 /HPF (0-5) Urine Squamous Epithelial Cells Few /hpf (<5) Urine Bacteria None seen /hpf (None Seen) Urine Yeast (Budding) Occasional /hpf (None Urine Glucose Normal mg/dL (Normal) Labs and/or images reviewed: Labs reviewed by me, Image(s) reviewed by me Assessment/Plan Assessment/Plan Covering For Dr. Rodriguez #1 likely svt: cardio eval pending #2 chest pain ?cad #3 sarcoidosis: on prednisone #4 htn #5 fibromyalgia # hyperthyroidism TSH 0.17: Patient not on any Synthroid, no previous history of thyroid disease, thyroid ultrasound ordered Time spent 50 minutes Plan discussed with: Patient Date of Service: Feb 28, 2025 Billing Provider: DWIGHT GAN MD Common Visit Codes: [id number] INP/OBS CARE(HIGH) DWIGHT GAN MD Feb 28, 2025 11:03
--- NOTE | 2025-02-28 11:26 | DVHINCON2 ---
Date Seen: Feb 28, 2025 Referring Physician MD Michael Reason for Consultation Chest pain and SVT History of Present Illness This is a 65-year-old female who presented to the emergency room via EMS with a chief complaint of palpitations yesterday. The patient reports she was lying down at the onset of symptoms reporting a sudden onset of palpitations associated with substernal chest pain radiating to her left jaw area which prompted her to call 911. Prior to EMS arrival she self administered ASA 324 mg p.o. x1 and Cardizem immediate release 30 mg p.o. x1. Upon EMS arrival she was found in a sinus tachycardia rhythm in the 120s bpm and administered IV fluids along a blood sugar level of 190 mg/dL. Within the emergency room she underwent multiple 12 lead electrocardiograms x3 revealing a sinus rhythm up to 122 bpm. Follows up in the outpatient setting with the primary principal automation engineer with last appointment completed six months ago. Of note, the patient endorses possible dehydration. Significant medical history includes paroxysmal supraventricular tachycardia on Cardizem/ASA therapy, mitral valve prolapse, hypertension, dyslipidemia, pulmonary sarcoidosis, and fibromyalgia. Past Medical History Past medical history reviewed. No other significant than mentioned above. Past Surgical History Past surgical history reviewed. No other significant than mentioned above. Family History: FHx: heart disease G8 MOTHER, Family History Family history reviewed. Social History Denies the use of illicit drugs, alcohol, or tobacco use. Allergies: Coded Allergies: Amoxicillin (Verified Allergy, Unknown, 02/26/25) Sulfa Antibiotics (Verified Allergy, Unknown, 11/07/19) Home Meds Active Scripts Prednisone (Prednisone) 20 Mg Tab, 20 MG PO BID PRN for 5 Days, #10 MG Prov:EVANGELIST MICHELLE MD 12/04/23 Levofloxacin Hemihydrate (LEVAQUIN 500 MG) 500 Mg Tab, 500 MG PO DAILY for 5 Days, #5 TAB Prov:TREVON REAL MD 06/27/23 Lisinopril (Lisinopril) 20 Mg Tab, 20 MG PO DAILY for 30 Days, #30 TAB Prov:TREVON REAL MD 06/27/23 Diltiazem Hcl (Diltiazem Hcl) 60 Mg Tab, 120 MG PO DAILY for 30 Days, #60 TAB Extended-release Prov:TREVON REAL MD 06/27/23 Aspirin (Aspir-81) 81 Mg Tab, 1 TAB PO DAILY for 30 Days, #30 TAB 5 Refills Prov:TREVON REAL MD 06/27/23 Amlodipine Besylate (Amlodipine Besylate) 5 Mg Tab, 10 MG PO DAILY for 30 Days, #60 TAB Prov:TREVON REAL MD 06/27/23 Reported Medications Teriparatide (Recombinant) (Teriparatide) 600 Mcg/2.4 Ml Inj, 600 MCG SC, INJ 02/27/25 Cholecalciferol (VITAMIN D3) 2,000 Unit Tab, 2000 UNIT OR, TAB 02/27/25 Spironolactone (Spironolactone) 25 Mg Tab, 1 TAB PO DAILY, #90 TAB 1 Refill 02/27/25 Diltiazem Hcl (Diltiazem Hcl) 30 Mg Tab, 30 MG PO Q8HR for 30 Days, MG 02/27/25 Denosumab (Prolia) 60 Mg/Ml Cristina, 60 MG SC [id number] 06/26/23 Ranitidine Hcl (Zantac) 300 Mg Tab, 1 TAB PO QPM, #90 TAB 3 Refills 11/29/17 Naproxen (NAPROSYN TABLET) 500 Mg Tb, 1 TAB PO BID, #60 TAB 1 Refill 11/29/17 Prednisone (PREDNISONE) 5 Mg Tb, 10 MG PO DAILY 09/21/13 Tramadol Hcl (Tramadol Hcl) 50 Mg Tab, 50 MG PO, TAB 09/21/13 Home Meds Home medications reviewed. Current Medications Current Medications Medications (Trade) Dose Ordered Sig/Teresa Route PRN Reason Start Time Stop Time Status Last Admin Prednisone 5 mg DAILY PO 02/28/25 10:00 02/28/25 09:07 Tramadol HCl (Ultram) 50 mg Q6HP PRN PO MODERATE PAIN (4-6 PAIN SCALE) 02/27/25 17:30 02/28/25 09:11 Spironolactone (Aldactone) 25 mg DAILY PO 02/28/25 10:00 02/28/25 09:07 Review of Systems Constitutional: No symptom reported Ears, Nose, & Throat: No symptom reported Eyes: No symptom reported Neurological: No symptoms reported Pulmonary/Respiratory: No symptom reported Cardiovascular: Palpitations, chest pain Gastrointestinal: No symptom reported Genitourinary: No symptom reported Musculoskeletal: No symptom reported Skin: No symptom reported Psychiatric: No symptom reported Endocrine: No symptom reported Hemotologic/Lymphatic: No symptom reported Vital Signs Vital Signs Date Time Temp Pulse Resp B/P (MAP) Pulse Ox O2 Delivery O2 Flow Rate FiO2 02/28/25 09:07 97 112/76 02/28/25 09:00 97.9 20 98 97.9 02/27/25 20:00 Room Air* 0 21 Physical Exam General Appearance: Cooperative. Well developed. Well nourished. In no acute distress Head Exam: Normal inspection Neck Exam: Normal inspection. Non-tender. Normal alignment Pulmonary/Respiratory: Chest non-tender. Clear bilateral breath sounds Cardiovascular/Chest: Regular rate and rhythm. S1, S2. NSR. No murmurs. No JVD. Peripheral Pulses: 2+ Radial (R). 2+ Radial (L). 2+ Pedal (R). 2+ Pedal (L) Abdominal Exam: Normal bowel sounds. Soft. Nontender. No hepatospenomegaly. No masses Ankle Exam: Negative ankle edema Lower extremities: Negative lower extremity edema Neuro/Mental Status: A&O x4. Coherent Thoughts/Psych: Normal thought pattern. Appropriate mood and affect. Good judgement and insight Appearance: In no acute distress Skin Exam: Normal inspection. Normal color. Warm. Dry Labs/Diagnostic Data Labs Test 02/28/25 04:06 02/27/25 17:37 02/26/25 18:44 02/26/25 14:30 Range/Units White Blood Count 8.4 # 4.4-10.8 10^3/uL Red Blood Count 3.94 L 4.0-5.20 10^6/uL Hemoglobin 13.4 12.2-16.2 g/dL Hematocrit 38.0 36.0-46.0 % Mean Corpuscular Volume 96.6 80.0-100.0 fL Mean Corpuscular Hemoglobin 34.1 H 28.0-32.0 pg Mean Corpuscular Hemoglobin Concent 35.3 32.0-36.0 g/dL Red Cell Distribution Width 13.4 11.8-14.3 % Platelet Count 319 140-450 10^3/uL Mean Platelet Volume 6.9 6.9-10.8 fL Neutrophils (%) (Auto) 79.1 37.0-80.0 % Lymphocytes (%) (Auto) 13.5 10.0-50.0 % Monocytes (%) (Auto) 4.9 0.0-12.0 % Eosinophils (%) (Auto) 1.5 0.0-7.0 % Basophils (%) (Auto) 1.0 0.0-2.0 % Neutrophils # (Auto) 6.6 1.6-8.6 10 ^3/uL Lymphocytes # (Auto) 1.1 0.4-5.4 10 ^3/uL Monocytes # (Auto) 0.4 0-1.3 10 ^3/uL Eosinophils # (Auto) 0.1 0-0.8 10 ^3/uL Basophils # (Auto) 0.1 0-0.2 10 ^3/uL Nucleated Red Blood Cells 0.0 % Sodium Level 140 136-145 mmol/L Potassium Level 4.4 3.5-5.1 mmol/L Chloride Level 105 98-107 mmol/L Carbon Dioxide Level 26 20-31 mmol/L Anion Gap 9 5-15 Blood Urea Nitrogen 10 9-23 mg/dL Creatinine 0.70 0.550-1.02 mg/dL Glomerular Filtration Rate Calc 96 >90 mL/min BUN/Creatinine Ratio 14.3 10.0-20.0 Serum Glucose 126 H 74-106 mg/dL Calcium Level 9.7 8.7-10.4 mg/dL Magnesium Level 1.8 1.6-2.6 mg/dL Total Bilirubin 0.5 0.2-1.0 mg/dL Aspartate Amino Transferase (AST) 15 13-40 U/L Alanine Aminotransferase (ALT) 13 7-40 U/L Alkaline Phosphatase 115 46-116 U/L Total Protein 6.3 5.7-8.2 g/dL Albumin 3.9 3.2-4.8 g/dL Thyroid Stimulating Hormone (TSH) 0.17 L 0.55-4.78 uIU/mL Free Thyroxine (T4) Calculated 1.31 0.89-1.76 ng/dL Hepatitis B Surface Antigen Negative Negative Hepatitis C Antibody Negative Negative Troponin I High Sensitivity 20 </=34 ng/L Urine Color Colorless Yellow Urine Clarity Clear Clear Urine pH 6.0 5.0-9.0 Urine Specific [place] 1.004 1.001-1.035 Urine Protein Negative Negative Urine Ketones Negative Negative Urine Blood Negative Negative /uL Urine Nitrite Negative Negative Urine Bilirubin Negative Negative Urine Urobilinogen Normal Negative mg/dL Urine Leukocyte Esterase 2+ Negative /uL Urine RBC 1 0 - 4 /hpf Urine Microscopic WBC 3 0-5 /HPF Urine Squamous Epithelial Cells Few <5 /hpf Urine Bacteria None seen None Seen /hpf Urine Yeast (Budding) Occasional None Seen /hpf Urine Glucose Normal Normal mg/dL Assessment Palpitations/chest pain, ?SVT event Paroxysmal supraventricular tachycardia (on Cardizem therapy) Rule out structural heart disease Pulmonary sarcoidosis Fibromyalgia Hypertension Dyslipidemia Plan/Recommendation (Dr. Mason) We will continue further cardiac evaluation with a transthoracic echocardiogram to evaluate cardiac function. A coronary angiogram with cardiac catheterization from September-2022 revealed normal coronary arteries. Twelve lead electrocardiograms and environmental monitoring technician reviewed with no evidence of tachyarrhythmias. The patient can benefit from an outpatient event monitor to further evaluate possible transient SVT events. In the setting of continued tachyarrhythmias she can benefit from an outpatient electrophysiology consultation and evaluation for possible cardiac ablation. In the meantime, replete electrolytes as necessary and continue diltiazem therapy. Counseled on increased oral fluid intake. In the setting of an unremarkable echocardiogram, there is no further cardiac workup indicated at this time. Thank you for allowing us to participate in this patient's care. Please call if you have any questions or concerns. This medical document was created using an electronic medical record system with voice recognition software and computerized dictation system. Although this document has been carefully reviewed, there might still be some phonetic and typographical errors. Occasional wrong-word or ``sound-alike substitutions may have occurred due to the inherent limitations of voice recognition software. These areas are purely typographical due to imperfections of the software programs and do not reflect any compromise in the patient's medical care. Please read the chart carefully and recognize, using context, where these substitutions have occurred. Plan discussed with: Patient, Other NYHA Physical activity limitations: NA Date of Service: Feb 28, 2025 Billing Provider: MALGORZATA FLORES Cardiology Common Codes: [id number] INP/OBS CARE (High) MALGORZATA FLORES Feb 28, 2025 11:26
--- NOTE | 2025-02-28 12:13 | DVHSR ---
APPROVED REPORT EXAM: Two-dimensional and M-mode echocardiogram with Doppler and color Doppler. Blood Pressure: 105/72 mmHg INDICATION Chest Pain RISK FACTORS Height: 5'2", Weight: 137 DIMENSIONS LVDd4.3 (3.8-5.7cm)LA (2D)4.1 (1.9-4.0cm)Aortic Root3.5 (2.0-3.7cm) LVDs2.2 (2.5-4.0cm)LA (MM) (1.9-4.0cm)Aortic Cusp Exc2.0 (1.5-2.0cm) EF (%) 80.0 (55-70%)Rt. Atrium3.9 (1.9-4.0cm)Asc. Aorta cm IVSd0.9 (0.7-1.1cm)RV (D) (1.8-2.4cm) PWd0.8 (0.7-1.1cm) Mitral Valve MitralMitral Stenosis E wave0.72m/sMV Mean GR.mmHg A wave0.88m/sMV Peak GR.mmHg E/A ratio0.82D MVAcm2 DECEL [id number] 1/2 Timems Aortic Valve Aortic ValveAortic Stenosis V11.22m/Gabrielle Mean GR.8mmHg V21.84m/Gabrielel Peak GR.14mmHg LVOT Diameter2.1 (1.8-2.4cm)Doppler AVA2.30cm2 2D AVA2.26cm2 Pulmonic Valve V20.79m/s Tricuspid Valve TR Velocity2.15m/s FFTA58mnTc Other Information Quality : Technically LimitedRhythm : Technically limited study due to body habitus. Conclusion MILD LVH AND MILD LV DIASTOLIC DYSFUNCTION LV EF IS 75% AND IS NORMAL AORTIC SCLEROSIS NORMAL MV,TV AND PV NO EFFUSION NORMAL RV FUNCTION
[2025-02-28] MEDS: MAGNESIUM SULFATE 1GM/100ML 100 ML IV ONE (12:19)
--- NOTE | 2025-02-28 13:02 | DVH ---
ULTRASOUND SOFT TISSUE HEAD AND NECK CLINICAL INDICATION: Hyperthyroidism TECHNIQUE: Multiple real time sonographic images of the thyroid were obtained. COMPARISON: Prior exam dated 06/24/2023 FINDINGS: The right thyroid gland measures 5.5 x 1.8 x 1.7 cm. The left thyroid gland measures approximately 5.2 x 1.8 x 1.7 cm. The isthmus measures 0.4 cm. The thyroid gland is diffusely heterogeneous with multiple subcentimeter thyroid nodules. There is a TI-RADS 3 nodule in the right thyroid gland measuring 0.8 cm. There is a TI-RADS 4 nodule in the ist hmus measuring 0.5 cm. A TI-RADS 4 nodule in the left thyroid gland measuring 0.7 cm. Additional col loid subcentimeter cysts are visualized. IMPRESSION: Bilateral subcentimeter TI-RADS 2, TI-RADS 3 and TI-RADS 4 nodules as detailed above. Recommend follow-up thyroid ultrasound in 1 year. [employer] [place] [employer] [employer] TI-RADS Categories and Recommendations (2017): TR1: 0 points, Benign, No FNA TR2: 2 points, Not suspicious, No FNA TR3: 3 points, Mildly suspicious, FNA if > or = 2.5 cm, Follow if > or = 1.5 cm TR4: 4-6 points, Moderately Suspicious, FNA if > or = 1.5 cm, Follow if > or = 1.0 cm TR5: 7+ points, Highly Suspicious, FNA if > or = 1.0 cm, Follow if > or = 0.5 cm Follow-up ultrasound guidelines: TR5: yearly for 5 years, if no growth or change in TI-RADS level TR4: at 1, 2, 3 and 5 years, if no growth or change in TI-RADS level TR3: at 1, 3 and 5 years, if no growth or change in TI-RADS level If increased but below threshold for FNA, repeat in one year. Source: ACR Thyroid Imaging, Reporting and Data System (TI-RADS): White Paper of the ACR TI-RADS Committee. Blanka et al., J Am Duong Radiol 2017;14:587-595.
[2025-03-01] VITALS (8 sets, daily range): BP systolic 97–117; BP diastolic 61–87; PULSE 80–102; RESP 20; TEMP 97.7–98.6; O2SAT 94–97
[2025-03-01] MEDS: MAGNESIUM OXIDE 400 MG TAB PO SCH (10:14)
--- NOTE | 2025-03-01 12:00 | DVHPN2 ---
Reviewed: Care Plan, H&P, Labs, Medications, Previous Orders, Radiology Changes from previous H/P or p: No Changes Objective Vitals Vital Signs Date Time Temp Pulse Resp B/P (MAP) Pulse Ox O2 Delivery O2 Flow Rate FiO2 03/01/25 10:14 86 103/74 03/01/25 09:00 98.6 20 97 98.6 03/01/25 08:00 Room Air* 0 21 Intake/Output Intake and Output 03/01/25 07:00 Intake Total 1602 ml Balance 1602 ml Intake Oral 1602 ml # Voids 6 # Bowel Movements 2 Medications Current Medications Medications Dose Ordered Sig/Teresa Route Start Time Stop Time Status Last Admin Dose Admin Aspirin 81 mg DAILY PO 02/27/25 10:00 03/01/25 10:14 81 MG Diltiazem HCl 120 mg DAILY PO 02/27/25 10:00 03/01/25 10:14 120 MG Ondansetron HCl 4 mg Q4HP PRN IV 02/26/25 19:45 Acetaminophen 650 mg Q6HP PRN PO 02/26/25 19:45 02/27/25 15:07 650 MG Nitroglycerin 0.4 mg Q5MINP PRN SL 02/26/25 19:45 Morphine Sulfate 2 mg Q30M PRN IV 02/26/25 19:45 Prednisone 5 mg DAILY PO 02/28/25 10:00 03/01/25 10:14 5 MG Tramadol HCl 50 mg Q6HP PRN PO 02/27/25 17:30 02/28/25 20:58 50 MG Spironolactone 25 mg DAILY PO 02/28/25 10:00 03/01/25 10:13 25 MG Magnesium Oxide 400 mg DAILY PO 03/01/25 10:00 03/01/25 10:14 400 MG Laboratory Results Laboratory Tests 02/28/25 04:06 Urinalysis Test 02/26/25 14:30 Urine Color Colorless (Yellow) Urine Clarity Clear (Clear) Urine pH 6.0 (5.0-9.0) Urine Specific [place] 1.004 (1.001-1.035) Urine Protein Negative (Negative) Urine Ketones Negative (Negative) Urine Blood Negative /uL (Negative) Urine Nitrite Negative (Negative) Urine Bilirubin Negative (Negative) Urine Urobilinogen Normal mg/dL (Negative) Urine Leukocyte Esterase 2+ /uL (Negative) Urine RBC 1 /hpf (0 - 4) Urine Microscopic WBC 3 /HPF (0-5) Urine Squamous Epithelial Cells Few /hpf (<5) Urine Bacteria None seen /hpf (None Seen) Urine Yeast (Budding) Occasional /hpf (None Urine Glucose Normal mg/dL (Normal) Labs and/or images reviewed: Labs reviewed by me, Image(s) reviewed by me Assessment/Plan Assessment/Plan Covering For Dr. Rodriguez #1 SVT Cardiology consult appreciated, Echo 70 percent ejection fraction, advised outpatient event monitor and possible cardiac ablation #2 chest pain ?cad #3 sarcoidosis: on prednisone #4 htn #5 fibromyalgia # hyperthyroidism TSH 0.17: Patient not on any Synthroid, no previous history of thyroid disease, thyroid ultrasound shows bilateral subcentimeter nodules recommended one year follow up ultrasound Time spent 53 minutes Possible DC Monday Plan discussed with: Patient Date of Service: Mar 01, 2025 Billing Provider: DWIGHT GAN MD Common Visit Codes: [id number] INP/OBS CARE(HIGH) DIWGHT GAN MD Mar 01, 2025 11:59
[2025-03-02 05:00] VITALS: BP 99/65; PULSE 77; RESP 20; TEMP 97.7; O2SAT 98
[2025-03-02 08:00] VITALS: PULSE 73; PULSE 91; RESP 20; O2SAT 97
--- NOTE | 2025-03-02 10:11 | DVHPN2 ---
Reviewed: Care Plan, H&P, Labs, Medications, Previous Orders, Radiology Changes from previous H/P or p: No Changes Objective Vitals Vital Signs Date Time Temp Pulse Resp B/P (MAP) Pulse Ox O2 Delivery O2 Flow Rate FiO2 03/02/25 09:20 90 135/65 03/02/25 05:00 97.7 20 98 97.7 03/01/25 20:00 Room Air* 0 21 Intake/Output Intake and Output 03/02/25 07:00 Intake Total 1150 ml Balance 1150 ml Intake Oral 1150 ml # Voids 4 # Bowel Movements 1 Medications Current Medications Medications Dose Ordered Sig/Teresa Route Start Time Stop Time Status Last Admin Dose Admin Aspirin 81 mg DAILY PO 02/27/25 10:00 03/02/25 09:17 81 MG Diltiazem HCl 120 mg DAILY PO 02/27/25 10:00 03/02/25 09:20 120 MG Ondansetron HCl 4 mg Q4HP PRN IV 02/26/25 19:45 Acetaminophen 650 mg Q6HP PRN PO 02/26/25 19:45 02/27/25 15:07 650 MG Nitroglycerin 0.4 mg Q5MINP PRN SL 02/26/25 19:45 Morphine Sulfate 2 mg Q30M PRN IV 02/26/25 19:45 Prednisone 5 mg DAILY PO 02/28/25 10:00 03/02/25 09:17 5 MG Tramadol HCl 50 mg Q6HP PRN PO 02/27/25 17:30 03/02/25 05:40 50 MG Spironolactone 25 mg DAILY PO 02/28/25 10:00 03/02/25 09:16 25 MG Magnesium Oxide 400 mg DAILY PO 03/01/25 10:00 03/02/25 09:17 400 MG Laboratory Results Laboratory Tests 02/28/25 04:06 Urinalysis Test 02/26/25 14:30 Urine Color Colorless (Yellow) Urine Clarity Clear (Clear) Urine pH 6.0 (5.0-9.0) Urine Specific [place] 1.004 (1.001-1.035) Urine Protein Negative (Negative) Urine Ketones Negative (Negative) Urine Blood Negative /uL (Negative) Urine Nitrite Negative (Negative) Urine Bilirubin Negative (Negative) Urine Urobilinogen Normal mg/dL (Negative) Urine Leukocyte Esterase 2+ /uL (Negative) Urine RBC 1 /hpf (0 - 4) Urine Microscopic WBC 3 /HPF (0-5) Urine Squamous Epithelial Cells Few /hpf (<5) Urine Bacteria None seen /hpf (None Seen) Urine Yeast (Budding) Occasional /hpf (None Urine Glucose Normal mg/dL (Normal) Labs and/or images reviewed: Labs reviewed by me, Image(s) reviewed by me Assessment/Plan Assessment/Plan Covering For Dr. Rodriguez #1 SVT Cardiology consult appreciated, Echo 70 percent ejection fraction, advised outpatient event monitor and possible cardiac ablation #2 chest pain ?cad #3 sarcoidosis: on prednisone #4 htn #5 fibromyalgia # hyperthyroidism TSH 0.17: Patient not on any Synthroid, no previous history of thyroid disease, thyroid ultrasound shows bilateral subcentimeter nodules recommended one year follow up ultrasound Patient feels better and wants to go home Plan discussed with: Patient Date of Service: Mar 02, 2025 Billing Provider: DWIGHT GAN MD Common Visit Codes: [id number] INP/OBS CARE(HIGH) DWIGHT GAN MD Mar 02, 2025 10:11
--- NOTE | 2025-03-02 10:17 | DVHDS2 ---
Discharge Summary Date of Admission Feb 26, 2025 at 19:36 Date of Discharge: Mar 02, 2025 Admitting Diagnosis Palpitations Wounds: None Labs/Diagnostic Data: Laboratory Results Test 02/28/25 04:06 02/27/25 17:37 02/26/25 18:44 02/26/25 14:30 White Blood Count 8.4 10^3/uL (4.4-10.8) Red Blood Count 3.94 10^6/uL (4.0-5.20) Hemoglobin 13.4 g/dL (12.2-16.2) Hematocrit 38.0 % (36.0-46.0) Mean Corpuscular Volume 96.6 fL (80.0-100.0) Mean Corpuscular Hemoglobin 34.1 pg (28.0-32.0) Mean Corpuscular Hemoglobin Concent 35.3 g/dL (32.0-36.0) Red Cell Distribution Width 13.4 % (11.8-14.3) Platelet Count 319 10^3/uL (140-450) Mean Platelet Volume 6.9 fL (6.9-10.8) Neutrophils (%) (Auto) 79.1 % (37.0-80.0) Lymphocytes (%) (Auto) 13.5 % (10.0-50.0) Monocytes (%) (Auto) 4.9 % (0.0-12.0) Eosinophils (%) (Auto) 1.5 % (0.0-7.0) Basophils (%) (Auto) 1.0 % (0.0-2.0) Neutrophils # (Auto) 6.6 10 ^3/uL (1.6-8.6) Lymphocytes # (Auto) 1.1 10 ^3/uL (0.4-5.4) Monocytes # (Auto) 0.4 10 ^3/uL (0-1.3) Eosinophils # (Auto) 0.1 10 ^3/uL (0-0.8) Basophils # (Auto) 0.1 10 ^3/uL (0-0.2) Nucleated Red Blood Cells 0.0 % Sodium Level 140 mmol/L (136-145) Potassium Level 4.4 mmol/L (3.5-5.1) Chloride Level 105 mmol/L (98-107) Carbon Dioxide Level 26 mmol/L (20-31) Anion Gap 9 (5-15) Blood Urea Nitrogen 10 mg/dL (9-23) Creatinine 0.70 mg/dL (0.550-1.02) Glomerular Filtration Rate Calc 96 mL/min (>90) BUN/Creatinine Ratio 14.3 (10.0-20.0) Serum Glucose 126 mg/dL (74-106) Calcium Level 9.7 mg/dL (8.7-10.4) Magnesium Level 1.8 mg/dL (1.6-2.6) Total Bilirubin 0.5 mg/dL (0.2-1.0) Aspartate Amino Transferase (AST) 15 U/L (13-40) Alanine Aminotransferase (ALT) 13 U/L (7-40) Alkaline Phosphatase 115 U/L (46-116) Total Protein 6.3 g/dL (5.7-8.2) Albumin 3.9 g/dL (3.2-4.8) Thyroid Stimulating Hormone (TSH) 0.17 uIU/mL (0.55-4.78) Free Thyroxine (T4) Calculated 1.31 ng/dL (0.89-1.76) Hepatitis B Surface Antigen Negative (Negative) Hepatitis C Antibody Negative (Negative) Troponin I High Sensitivity 20 ng/L (</=34) Urine Color Colorless (Yellow) Urine Clarity Clear (Clear) Urine pH 6.0 (5.0-9.0) Urine Specific [place] 1.004 (1.001-1.035) Urine Protein Negative (Negative) Urine Ketones Negative (Negative) Urine Blood Negative /uL (Negative) Urine Nitrite Negative (Negative) Urine Bilirubin Negative (Negative) Urine Urobilinogen Normal mg/dL (Negative) Urine Leukocyte Esterase 2+ /uL (Negative) Urine RBC 1 /hpf (0 - 4) Urine Microscopic WBC 3 /HPF (0-5) Urine Squamous Epithelial Cells Few /hpf (<5) Urine Bacteria None seen /hpf (None Seen) Urine Yeast (Budding) Occasional /hpf (None Urine Glucose Normal mg/dL (Normal) Other Laboratory Tests 02/28/25 04:06 Brief Hx & Hospital Course: 65-year-old female with a history of sarcoidosis hypertension fibromyalgia came in for palpitations. Found to have SVT Echo 70 percent ejection fraction cardiology advised outpatient event monitor and possible cardiac ablation placed on magnesium oxide. Continued on home medications Cardizem and Aldactone. TSH 0.17 thyroid ultrasound showed bilateral subcentimeter nodule advised outpatient follow up in one year patient is discharged home prescription for magnesium oxide transmitted to the pharmacy. She will continue prednisone for her sarcoidosis. She will advised to follow up with the landscape maintenance internship for outpatient event monitor and possible cardiac ablation Consults/Reason for consult Cardiology Operations or Procedures Echocardiogram Condition at Discharge: Fair Final Diagnosis/Problems List #1 SVT Cardiology consult appreciated, Echo 70 percent ejection fraction, advised outpatient event monitor and possible cardiac ablation #2 chest pain ?cad #3 sarcoidosis: on prednisone #4 htn #5 fibromyalgia # hyperthyroidism TSH 0.17: Patient not on any Synthroid, no previous history of thyroid disease, thyroid ultrasound shows bilateral subcentimeter nodules recommended one year follow up ultrasound Discharge Disposition: Home Discharge Instruct/Medications Diet: Cardiac 2g Na,low cholest Activity: Light activity Follow Up/Referral: Continue all your previous home medications including Aldactone Cardizem Use new medications Medications: Magnesium oxide Transmitted to pharmacy Scheduled Amlodipine Besylate (Amlodipine Besylate), 10 MG PO DAILY Aspirin (Aspir-81), 1 TAB PO DAILY Denosumab (Prolia), 60 MG SC [id number], (Reported) Diltiazem Hcl (Diltiazem Hcl), 120 MG PO DAILY Diltiazem Hcl (Diltiazem Hcl), 30 MG PO Q8HR, (Reported) Levofloxacin Hemihydrate (Levaquin 500 Mg), 500 MG PO DAILY Lisinopril (Lisinopril), 20 MG PO DAILY Naproxen (Naprosyn Tablet), 1 TAB PO BID, (Reported) Prednisone (Prednisone), 10 MG PO DAILY, (Reported) Ranitidine Hcl (Zantac), 1 TAB PO QPM, (Reported) Spironolactone (Spironolactone), 1 TAB PO DAILY, (Reported) Scheduled PRN Prednisone (Prednisone), 20 MG PO BID PRN Miscellaneous Medications Cholecalciferol (Vitamin D3), 2,000 UNIT OR, (Reported) Teriparatide (Recombinant) (Teriparatide), 600 MCG SC, (Reported) Tramadol Hcl (Tramadol Hcl), 50 MG PO, (Reported) 36 (Time taken for discharge summary 36 minutes) Discharge Statement: "Patient was advised to return to the ER or call 911 if any headaches, dizziness, shortness of breath, chest pain, abdominal pain, bleeding, fevers, or worsening of medical condition. Patient was counseled about treatment plan, medications, possible side effects, patientverbalized understanding. All questions were answered to the best of my ability. This discharge took greater then 30 minutes in planning, reviewing documentation, counseling the patient, and discussing with other team members." ASSESSMENT ASSESSMENT Hospital Course Uneventful Assessment #1 SVT Cardiology consult appreciated, Echo 70 percent ejection fraction, advised outpatient event monitor and possible cardiac ablation #2 chest pain ?cad #3 sarcoidosis: on prednisone #4 htn #5 fibromyalgia # hyperthyroidism TSH 0.17: Patient not on any Synthroid, no previous history of thyroid disease, thyroid ultrasound shows bilateral subcentimeter nodules recommended one year follow up ultrasound Date of Service: Mar 02, 2025 Billing Provider: DWIGHT GAN MD Common Visit Codes: [id number] DISCH DAY >30min DWIGHT GAN MD Mar 02, 2025 10:17
[2025-03-02] MEDS ORDERED: MAGN1TAB29 PO (10:23)
[2025-03-02 11:24] VITALS: BP 135/65; PULSE 90; RESP 20; TEMP 36.5; O2SAT 97
== END 2025-03-02 12:29 | disposition home or self-care (01) | DRG 303 ==
LOC: ER 14:19 → EDBD 14:19 → OVERFLOW 19:36 → TELE-WESTW 21:02
PROVIDERS: ADMIT Family Medicine; ATTEND Family Medicine
DX: I25.10 Atherosclerotic heart disease of native coronary artery without angina pectoris (principal); I47.10 Supraventricular tachycardia, unspecified; I10 Essential (primary) hypertension; M79.7 Fibromyalgia; E05.90 Thyrotoxicosis, unspecified without thyrotoxic crisis or storm; D86.0 Sarcoidosis of lung; E78.5 Hyperlipidemia, unspecified; J45.909 Unspecified asthma, uncomplicated; I25.2 Old myocardial infarction; Z88.0 Allergy status to penicillin; Z88.2 Allergy status to sulfonamides; Z79.82 Long term (current) use of aspirin; Z79.899 Other long term (current) drug therapy
CPT/HCPCS: 36415; 71045; 76536; 80048; 80053; 81001; 83735; 84439; 84443; 84484; 85025; 86803; 87340; 93005; 93306; 96365; 96375; G0378